=== PATIENT | male | born 1990 | race Caucasian/White ===

== ENCOUNTER → 2019-05-12 20:20 | Outpatient (CLI) | payer BC, SELFPAY | PROVIDERS: PCP Internal Medicine Adolescent Medicine; Visit Provider Internal Medicine Adolescent Medicine | DX: G47.33 Obstructive sleep apnea (adult) (pediatric) (principal); R06.83 Snoring; E66.9 Obesity, unspecified | CPT/HCPCS: 95810 ==

== ENCOUNTER → 2019-10-16 14:32 | Outpatient (CLI) | payer BC, SELFPAY | PROVIDERS: PCP Internal Medicine Adolescent Medicine; Visit Provider Nurse Practitioner Family | DX: G47.33 Obstructive sleep apnea (adult) (pediatric) (principal); Z99.89 Dependence on other enabling machines and devices | CPT/HCPCS: 94762 ==

== ENCOUNTER 2020-08-02 22:33 | Observation (INO) | payer BC, SELFPAY ==
[2020-08-02 22:43] VITALS: BP 140/97; PULSE 73; RESP 17; TEMP 36.6; O2SAT 96; BMI 39.6
--- NOTE | 2020-08-02 22:48 | CT_ITS ---
PROCEDURE: CT ABDOMEN PELVIS W CON CLINICAL INDICATION: belly pain Epigastric pain, abdominal pain COMPARISON: CT ABDWO CT ABD W/O CONT(RENAL ST.orAPP from 09/07/2017 TECHNIQUE: IV Contrast: 75ML OPTIRAY 350 Oral Contrast None Axial images obtained with sagittal and coronal reformats. All CT scans at the facility use one or more dose reduction, viz: automated exposure control, ma/kV adjustment per patient size (including targeted exams where dose is matched to indication, i.e. head), or iterative reconstruction technique. FINDINGS: LOWER THORAX: Patchy density is present in the right lung base posteriorly suggesting an area of atelectasis or early infiltrate. ABDOMEN & PELVIS: There is an ill-defined hypodensity in the left hepatic lobe measuring 9 mm. There is a Phrygian cap at the gallbladder with a small stone within the cap. There is also small stones in the region of the gallbladder neck/cystic duct. There is minimal haziness of the pericholecystic fat. The pancreas, adrenal glands, have an unremarkable appearance. There are nonobstructing bilateral renal calculi at 2 mm in the lower pole on both sides. No ureteral calculi are evident. There is a small umbilical hernia containing fat. Unremarkable appendix. No intestinal obstruction or free air. No acute bony findings. No pelvic mass or abnormal fluid collection. IMPRESSION: Cholelithiasis. There is some mild haziness of the pericholecystic fat which may be seen with cholecystitis. Nonobstructing bilateral nephrolithiasis Indeterminate 9 mm lesion of the left hepatic lobe the. Stability may be confirmed with follow-up possibly due to hemangioma not readily apparent on the 5 minutes delayed images. Dictated by: Juan Dutta MD 08/03/2020 10:28 Juan Dutta MD in [place] 08/03/2020 10:28
[2020-08-02 22:53] LABS: Microscopic, Urine URINE MICROSCOPIC (MICROSCOPIC)
[2020-08-02 22:55] LABS: Appearance,Urine CLEAR (Clear); Bilirubin,Urine Negative (Negative); Blood, Urine TRACE-L (Negative); Color,Urine YELLOW (Yellow); Glucose,Urine (UA) Negative (Negative); Ketones,Urine Negative (Negative); Leukocyte Esterase,Urine Negative (Negative); Nitrate,Urine Negative (Negative); PH,Urine 7.5 (5.0-8.5); Protein,Urine Negative (Negative); Urobilinogen,Urine 0.2 EU/dl (0.2)
[2020-08-02 22:56] LABS: Basophils # 0.1 K/mm3 (0-0.2); Basophils % 0.7 % (0.1-2.0); Eosinophils # 0.2 K/mm3 (0.0-0.4); Eosinophils % 1.3 % (0.1-12.0); Hematocrit 50.1 % (42.0-52.0); Hemoglobin 16.5 g/dL (14.1-18.0); Lymphocytes % 32.6 % (10-50); Mean Corpuscular HGB Conc 32.9 g/dL (31.8-35.4); Mean Corpuscular Volume 88.3 fl (80-94); Monocytes # 0.8 K/mm3 (0.1-1.0); Monocytes % 6.5 % (1.7-9.3); Neutrophils # 7.3 K/mm3 (1.8-7.8); Neutrophils % 58.9 % (37.0-80.0); Platelet Count 272 K/mm3 (142-424); Red Blood Count 5.68 M/mm3 (4.60-6.20); Red Cell Distribution Width 13.1 % (11.5-17.5); White Blood Count 12.3 K/mm3 (4.8-10.8)
[2020-08-02 23:01] LABS: Chloride 102 mmol/L (98-107)
[2020-08-02 23:02] LABS: Potassium 4.3 mmoL/L (3.5-5.1); Sodium 142 mmol/L (136-145)
[2020-08-02 23:04] LABS: Alanine Aminotransferase 40 U/L (12-78); Alkaline Phosphatase 68 U/L (38-126); Amylase 60 U/L (30-110); Anion Gap 12.3 mEq/L (5-15); Aspartate Amino Transferase 25 U/L (17-59); Bilirubin,Total 0.4 mg/dl (0.2-1.3); Blood Urea Nitrogen 12 mg/dl (9-20); Carbon Dioxide 32 mmol/L (22.0-30.0); Creatinine Clearance Estimated 237 mL/min (50-200); Estimated Glomerular Filt Rate 113 ml/min (>60); GFR (African American) 136 ML/MIN (>60)
[2020-08-02 23:05] LABS: Albumin Level 4.5 g/dl (3.5-5.0); Albumin/Globulin Ratio 1.5 (1.1-1.8); Calcium 9.8 mg/dl (8.4-10.2); Glucose 102 mg/dl (74-100); Lipase 78 U/L (23-300); Total Protein,Serum 7.5 g/dl (6.3-8.2)
[2020-08-02 23:13] LABS: Amorphous Sediment,Urine 1+ /lpf; Bacteria,Urine 1+ /lpf; Mucus,Urine 1+ /lpf; RBC,Urine Occasional #/hpf (0-3)
[2020-08-02 23:31] VITALS: BP 116/66; PULSE 71; RESP 18; O2SAT 95
[2020-08-03] VITALS (8 sets, daily range): BP systolic 95–131; BP diastolic 57–76; PULSE 67–78; RESP 16–20; TEMP 36.4–36.6; O2SAT 96–99; BMI 40.1
--- NOTE | 2020-08-03 00:49 | HMH.EDNVD ---
ED Disposition Clinical Impression: Cholecystitis with cholelithiasis Qualifiers: Cholelithiasis location: gallbladder Cholecystitis acuity: acute Biliary obstruction: without biliary obstruction Qualified Code(s): K80.00 - Calculus of gallbladder with acute cholecystitis without obstruction Disposition: Admitted as Observation Condition on Discharge: Good Instructions: DI for Acute Abdomen Referrals: Charles Lopez MD [Primary Care Provider] - - Critical Care Critical Care Time: No Attestation: On 08/02/20, the high probability of a clinically significant, sudden or life threatening deterioration of the following system(s) required my full and direct attention, intervention and personal management. The time I documented below is in addition to time spent performing reported procedures but includes the following listed in this critical care notation. Medical Decision Making - Medical Records Medical records reviewed: Yes: I reviewed the patient's medical records. - Janes Inquiry Pt receiving controlled substance: No Vital Signs: 08/02/20 22:43 08/02/20 23:31 08/03/20 00:37 Temperature 97.8 F Temperature Source Oral Pulse Rate [Right Brachial] 73 71 67 Respiratory Rate 17 18 17 Blood Pressure [Right Arm] 140/97 H 116/66 105/61 L Blood Pressure Mean [Right Arm] 111 82 75 Blood Pressure Source [Right Arm] Automatic Cuff Automatic Cuff Blood Pressure Position [Right Arm] Sitting Sitting 02 Sat by Pulse Oximetry 96 95 97 Oxygen Delivery Method Room Air Room Air Room Air - Lab Data Lab results reviewed: Yes: I reviewed the patient's lab results. Lab Results 08/02/20 22:42: Urine Color Yellow, Urine Appearance Clear, Urine pH 7.5, Ur Specific [place] 1.020, Urine Protein Negative, Urine Glucose (UA) Negative, Urine Ketones Negative, Urine Blood Trace-l, Urine Nitrate Negative, Urine Bilirubin Negative, Urine Urobilinogen 0.2, Ur Leukocyte Esterase Negative, Urine RBC Occasional, Urine WBC 3-5, Amorphous Sediment 1+, Urine Bacteria 1+, Urine Mucus 1+ 08/02/20 22:50: WBC 12.3 H, RBC 5.68, Hgb 16.5, Hct 50.1, MCV 88.3, MCH 29.0, MCHC 32.9, RDW 13.1, Plt Count 272, MPV 7.0 L, Neut % (Auto) 58.9, Lymph % (Auto) 32.6, [place] % (Auto) 6.5, Eos % (Auto) 1.3, Baso % (Auto) 0.7, Neut # (Auto) 7.3, Lymph # (Auto) 4.0, [place] # (Auto) 0.8, Eos # (Auto) 0.2, Baso # (Auto) 0.1 08/02/20 22:50: Sodium 142, Potassium 4.3, Chloride 102, Carbon Dioxide 32 H, Anion Gap 12.3, BUN 12, Creatinine 0.80, Estimated Creat Clear 237, Estimated GFR 113, Est GFR ( Amer) 136, Glucose 102 H, Calcium 9.8, Total Bilirubin 0.4, AST 25, ALT 40, Alkaline Phosphatase 68, Total Protein 7.5, Albumin 4.5, Globulin 3.0, Albumin/Globulin Ratio 1.5, Amylase 60, Lipase 78 Result diagrams: 08/02/20 22:50 08/02/20 22:50 Orders (Tests/Meds): ED MEDICATIONS Generic Name Dose Route Start Last Admin Trade Name Robertq PRN Reason Stop Dose Admin Sodium Chloride 1,000 mls @ 999 mls/hr 08/02/20 23:00 08/02/20 23:13 Sod Chlor 0.9% 1000ml Bag IV 08/03/20 00:00 999 mls/hr .Q1H1M MADELYN Administration Sodium Chloride 8 ml 08/02/20 23:01 08/02/20 23:13 Sodium Chloride 0.9% 10ml Vial IV 09/01/20 23:00 8 ml NEEDED PRN Administration dilute pepcid Discontinued Medications Generic Name Dose Route Start Last Admin Trade Name Za PRN Reason Stop Dose Admin Famotidine 20 mg 08/02/20 23:01 08/02/20 23:13 Famotidine 20mg/2ml Vial IV 08/02/20 23:02 20 mg ONCE ONE Administration Ioversol 75 ml 08/02/20 23:49 08/02/20 23:50 Ioversol-350 (74%) 100ml Vial IV 08/02/20 23:50 75 ml ONCE ONE Administration Protocol Ketorolac Tromethamine 30 mg 08/02/20 22:58 08/02/20 23:13 Ketorolac 30mg/Ml Vial IV 08/02/20 22:59 30 mg ONCE ONE Administration Metoclopramide HCl 10 mg 08/02/20 23:01 08/02/20 23:13 Metoclopramide Hcl 10mg/2ml Vial IVP 08/02/20 23:02 10 mg ONCE ONE Administration Onda
[2020-08-03 01:26] LABS: Coronavirus 19 IgG Antibody Negative (Negative); Coronavirus 19 IgM Antibody Negative (Negative)
--- NOTE | 2020-08-03 01:58 | PC.NURSE ---
PT ARRIVED TO THE FLOOR VIA W/C FROM ED W/ STAFF AT 0157
--- NOTE | 2020-08-03 04:01 | PC.NURSE ---
Pt is A&Ox4 and has ambulated in the room and to the BR, independently and tolerated well. 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 Pt kept NPO for GB U/S and general surg consult this am. Lungs CTA. Pt reports h/x GARETH and uses a cpap during sleep. Pt offered to contact MD for hospital cpap use, however pt stated he would be ok tonight and if staying a 2nd night, he would have family bring his cpap from home. VSS, call light within reach, will continue to monitor.
[2020-08-03 07:36] LABS: Basophils # 0.1 K/mm3 (0-0.2); Basophils % 0.5 % (0.1-2.0); Eosinophils # 0.2 K/mm3 (0.0-0.4); Hematocrit 46.7 % (42.0-52.0); Hemoglobin 15.6 g/dL (14.1-18.0); Lymphocytes # 3.8 K/mm3 (0.7-4.5); Lymphocytes % 40.4 % (10-50); Mean Corpuscular HGB Conc 33.5 g/dL (31.8-35.4); Mean Corpuscular Volume 86.7 fl (80-94); Mean Platelet Volume 7.6 fl (7.4-10.4); Monocytes # 0.6 K/mm3 (0.1-1.0); Monocytes % 6.1 % (1.7-9.3); Neutrophils # 4.9 K/mm3 (1.8-7.8); Platelet Count 243 K/mm3 (142-424); Red Blood Count 5.39 M/mm3 (4.60-6.20); Red Cell Distribution Width 13.1 % (11.5-17.5); White Blood Count 9.5 K/mm3 (4.8-10.8)
--- NOTE | 2020-08-03 08:00 | US_ITS ---
PROCEDURE: US GALLBLADDER CLINICAL INDICATION: abd pain/abn ct Abdominal pain, epigastric pain, abnormal CT scan COMPARISON: CT CT ABDOMEN PELVIS W CON from 08/02/2020 FINDINGS: Pancreas: Unremarkable/Not well seen Liver: There is appropriate direction of blood flow within a non dilated portal vein. No focal liver lesion demonstrated. Right kidney: Unremarkable appearing. No hydronephrosis. Gallbladder: The gallbladder is contracted with thickened wall. There is may be a minimal amount of pericholecystic fluid. No definite stones are demonstrated. CT however suggested stones within the cystic duct which may be difficult to visualize by ultrasound. Gas is present in the duodenum a at this area obscuring detail. Common bile duct is normal at 4 mm. Gallbladder wall measures up to 9 mm in thickness IMPRESSION: Contracted thickened gallbladder with questionable minimal pericholecystic fluid. No definite stones demonstrated by ultrasound however, cystic duct stones may be difficult to visualize on ultrasound specially with gas in the duodenal bulb area as is in this case Dictated by: Juan Dutta MD 08/03/2020 09:29 Juan Dutta MD in [place] 08/03/2020 09:29
[2020-08-03 08:01] LABS: Alanine Aminotransferase 32 U/L (12-78); Albumin Level 3.7 g/dl (3.5-5.0); Albumin/Globulin Ratio 1.4 (1.1-1.8); Alkaline Phosphatase 59 U/L (38-126); Anion Gap 10.9 mEq/L (5-15); Aspartate Amino Transferase 26 U/L (17-59); Bilirubin,Total 0.7 mg/dl (0.2-1.3); Blood Urea Nitrogen 12 mg/dl (9-20); Carbon Dioxide 28 mmol/L (22.0-30.0); Chloride 106 mmol/L (98-107); Creatinine Clearance Estimated 240 mL/min (50-200); Estimated Glomerular Filt Rate 113 ml/min (>60); GFR (African American) 136 ML/MIN (>60); Globulin 2.7 g/dL (1.3-3.2); Glucose 93 mg/dl (74-100); Potassium 3.9 mmoL/L (3.5-5.1); Sodium 141 mmol/L (136-145); Total Protein,Serum 6.4 g/dl (6.3-8.2)
--- NOTE | 2020-08-03 08:14 | HMH.PHAVTE ---
[facility] Pharmacy VTE Monitoring - Patient Demographics Admission date: 08/03/20 Report Date: 08/03/20 Time: 08:14 Allergies/Adverse Reactions: Patient Allergies No Known Allergies Allergy (Verified 08/02/20 22:51) Height: 1.78 m Weight: 127.006 kg Patient Problems: Current Active Problems Cholecystitis with cholelithiasis (Acute) - VTE Risk Labs: VTE Related Lab Results Hgb 15.6 g/dL (14.1-18.0) 08/03/20 06:07 Hct 46.7 % (42.0-52.0) 08/03/20 06:07 Plt Count 243 K/mm3 (142-424) 08/03/20 06:07 BUN 12 mg/dl (9-20) 08/03/20 06:07 Creatinine 0.80 mg/dl (0.66-1.25) 08/03/20 06:07 Estimated Creat Clear 240 mL/min (50-200) 08/03/20 06:07 VTE Score: 2 VTE Risk Level: Very Low Risk Clinical Trial Participant: No - Prophylaxis VTE Prophylaxis Ordered?: Yes Types of VTE Prophylaxis: TEDS Knee High
--- NOTE | 2020-08-03 08:55 | HMH.HP ---
*Admission Date: 08/03/20 *Chief complaint: Abdominal pain and vomiting *History of present illness: 30-year-old white male with very limited past medical history who is morbidly obese who came to the emergency department late last night with abdominal pain, cramping and vomiting. CT of abdomen showed gallstones, patient was admitted for further evaluation and diagnostic testing. Patient has no surgical history except for bilateral inguinal hernia repair when he was 5 years old. No recent ill contacts. No lower GI symptoms. [facility] History I have reviewed the patient's past medical history: Yes Medical History: Reports:: Anxiety Denies:: Cancer, Diabetes Mellitus Type 1, Diabetes Mellitus Type 2 *Have you ever received a pneumonia vaccine?: No *Have you received a flu vaccine this season?: No Other Medical History: Reports: Other Other Surgeries: Yes: Hernia Repair (double hernia repair in 1994) - *Social History Last grade of school completed: High school graduate Smoking Status: Former smoker Tobacco Type: cigarettes, smokeless tobacco # Packs/Day (cigarettes): 1 Alcohol Intake: current Alcohol Intake Frequency:: holidays/special occasions only Substance Use Type: denies use *Occupational Status:: employed Housing: house Household Members: significant other *Travel in the last 8 weeks: None Family Hx:: Coronary Artery Disease, Diabetes, Hypertension, Stroke Review of Systems - Review of Systems Review of systems:: pertinent systems reviewed and negative unless documented below - *Neurologic Denies seizure-like activity Meds Home Medications Medication Instructions Recorded Confirmed Type Venlafaxine HCl [Venlafaxine HCl 37.5 mg PO DAILY 08/02/20 08/03/20 History ER] Citalopram Hydrobromide 10 mg PO DAILY 08/03/20 08/03/20 History [Citalopram 10mg Tablet] Allergies Allergy/AdvReac Type Severity Reaction Status Date / Time No Known Allergies Allergy Verified 08/02/20 22:51 Exam Vital signs and Labs for Last 24 Hours: Temp Pulse Resp BP Pulse Ox 97.7 F 78 16 113/75 96 08/03/20 07:57 08/03/20 07:57 08/03/20 07:57 08/03/20 07:57 08/03/20 07:57 Laboratory Results - last 24 hr 08/02/20 22:42: Urine Color Yellow, Urine Appearance Clear, Urine pH 7.5, Ur Specific [place] 1.020, Urine Protein Negative, Urine Glucose (UA) Negative, Urine Ketones Negative, Urine Blood Trace-l, Urine Nitrate Negative, Urine Bilirubin Negative, Urine Urobilinogen 0.2, Ur Leukocyte Esterase Negative, Urine RBC Occasional, Urine WBC 3-5, Amorphous Sediment 1+, Urine Bacteria 1+, Urine Mucus 1+ 08/02/20 22:50: WBC 12.3 H, RBC 5.68, Hgb 16.5, Hct 50.1, MCV 88.3, MCH 29.0, MCHC 32.9, RDW 13.1, Plt Count 272, MPV 7.0 L, Neut % (Auto) 58.9, Lymph % (Auto) 32.6, [place] % (Auto) 6.5, Eos % (Auto) 1.3, Baso % (Auto) 0.7, Neut # (Auto) 7.3, Lymph # (Auto) 4.0, [place] # (Auto) 0.8, Eos # (Auto) 0.2, Baso # (Auto) 0.1 08/02/20 22:50: Sodium 142, Potassium 4.3, Chloride 102, Carbon Dioxide 32 H, Anion Gap 12.3, BUN 12, Creatinine 0.80, Estimated Creat Clear 237, Estimated GFR 113, Est GFR ( Amer) 136, Glucose 102 H, Calcium 9.8, Total Bilirubin 0.4, AST 25, ALT 40, Alkaline Phosphatase 68, Total Protein 7.5, Albumin 4.5, Globulin 3.0, Albumin/Globulin Ratio 1.5, Amylase 60, Lipase 78 08/03/20 00:00: SARS-CoV-2 IgG Ab (Rapid) Negative, SARS-CoV-2 IgM Ab (Rapid) Negative 08/03/20 06:07: WBC 9.5, RBC 5.39, Hgb 15.6, Hct 46.7, MCV 86.7, MCH 29.0, MCHC 33.5, RDW 13.1, Plt Count 243, MPV 7.6, Neut % (Auto) 51.0, Lymph % (Auto) 40.4, [place] % (Auto) 6.1, Eos % (Auto) 2.0, Baso % (Auto) 0.5, Neut # (Auto) 4.9, Lymph # (Auto) 3.8, [place] # (Auto) 0.6, Eos # (Auto) 0.2, Baso # (Auto) 0.1 08/03/20 06:07: Sodium 141, Potassium 3.9, Chloride 106, Carbon Dioxide 28, Anion Gap 10.9, BUN 12, Creatinine 0.80, Estimated Creat Clear 240, Estimated GFR 113, Est GFR ( Amer) 136, Glucose 93, Total Bilirubin 0.7, AST 26, ALT 32, Alkaline Phosphata
--- NOTE | 2020-08-03 12:41 | HMH.GSCON ---
*Admission Date: 08/03/20 *Reason for consult:: Cholecystitis *History of present illness: This is a 30-year-old gentleman who was seen in the emergency department yesterday evening with increasing pain in the upper abdomen. No fevers. No jaundice. His most significant pain is in the epigastric region and right upper quadrant. A CT scan followed by ultrasound did reveal a contracted gallbladder with possible stones. A 9 mm liver lesion of undetermined etiology was also noted. The patient states that he is aware of the small liver lesion and will have it looked at later . Currently, he states that he feels a bit better . He understands that he may need cholecystectomy but would prefer to be discharged and have this completed as an outpatient. Review of Systems - Constitutional Denies chills - Eyes Denies change in vision - ENT Denies difficulty swallowing - *Cardiovascular Denies chest pain - *Respiratory Denies cough - *Gastrointestinal Reports abdominal pain, Reports nausea - *Genitourinary Denies difficulty urinating - *Musculoskeletal Denies joint pain - Integumentary/Breasts Denies new lesions - *Neurologic Denies abnormal movements, Denies confusion, Denies seizure-like activity - Psychiatric Denies anxiety - Endocrine Denies cold intolerance - Hematologic/Lymphatic Denies easy bleeding - Allergic/Immunologic Denies wheezing [facility] History Medical History: Reports:: Anxiety Denies:: Cancer, Diabetes Mellitus Type 1, Diabetes Mellitus Type 2 *Have you ever received a pneumonia vaccine?: No *Have you received a flu vaccine this season?: No Other Medical History: Reports: Other Other Surgeries: Yes: Hernia Repair (double hernia repair in 1994) - *Social History Last grade of school completed: High school graduate Smoking Status: Former smoker Tobacco Type: cigarettes, smokeless tobacco # Packs/Day (cigarettes): 1 Alcohol Intake: current Alcohol Intake Frequency:: holidays/special occasions only Substance Use Type: denies use *Occupational Status:: employed Housing: house Household Members: significant other *Travel in the last 8 weeks: None - Psychiatric History Pschychiatric History:: Reports:: Anxiety Family Hx:: Coronary Artery Disease, Diabetes, Hypertension, Stroke Meds Home Medications Medication Instructions Recorded Confirmed Type Venlafaxine HCl [Venlafaxine HCl 37.5 mg PO DAILY 08/02/20 08/03/20 History ER] Allergies Allergy/AdvReac Type Severity Reaction Status Date / Time No Known Allergies Allergy Verified 08/02/20 22:51 Exam Vital signs and Labs for Last 24 Hours: Temp Pulse Resp BP Pulse Ox 97.7 F 78 18 113/75 96 08/03/20 07:57 08/03/20 07:57 08/03/20 10:17 08/03/20 07:57 08/03/20 08:00 Laboratory Results - last 24 hr 08/02/20 22:42: Urine Color Yellow, Urine Appearance Clear, Urine pH 7.5, Ur Specific [place] 1.020, Urine Protein Negative, Urine Glucose (UA) Negative, Urine Ketones Negative, Urine Blood Trace-l, Urine Nitrate Negative, Urine Bilirubin Negative, Urine Urobilinogen 0.2, Ur Leukocyte Esterase Negative, Urine RBC Occasional, Urine WBC 3-5, Amorphous Sediment 1+, Urine Bacteria 1+, Urine Mucus 1+ 08/02/20 22:50: WBC 12.3 H, RBC 5.68, Hgb 16.5, Hct 50.1, MCV 88.3, MCH 29.0, MCHC 32.9, RDW 13.1, Plt Count 272, MPV 7.0 L, Neut % (Auto) 58.9, Lymph % (Auto) 32.6, [place] % (Auto) 6.5, Eos % (Auto) 1.3, Baso % (Auto) 0.7, Neut # (Auto) 7.3, Lymph # (Auto) 4.0, [place] # (Auto) 0.8, Eos # (Auto) 0.2, Baso # (Auto) 0.1 08/02/20 22:50: Sodium 142, Potassium 4.3, Chloride 102, Carbon Dioxide 32 H, Anion Gap 12.3, BUN 12, Creatinine 0.80, Estimated Creat Clear 237, Estimated GFR 113, Est GFR ( Amer) 136, Glucose 102 H, Calcium 9.8, Total Bilirubin 0.4, AST 25, ALT 40, Alkaline Phosphatase 68, Total Protein 7.5, Albumin 4.5, Globulin 3.0, Albumin/Globulin Ratio 1.5, Amylase 60, Lipase 78 08/03/20 00:00: SARS-CoV-2 IgG Ab (Rapid
--- NOTE | 2020-08-03 13:26 | HMH.DCSUM ---
General - General Admission date:: 08/03/20 Discharge date: 08/03/20 HPI HPI: 30-year-old white male with very limited past medical history who is morbidly obese who came to the emergency department late last night with abdominal pain, cramping and vomiting. CT of abdomen showed gallstones, patient was admitted for further evaluation and diagnostic testing. Patient has no surgical history except for bilateral inguinal hernia repair when he was 5 years old. No recent ill contacts. No lower GI symptoms. Hospital Course Hospital Course: Patient was admitted to hospital, diagnosis of cholelithiasis with cholecystitis was confirmed by ultrasound. However patient stabilized. Was able to tolerate clear liquids. Surgery recommended laparoscopic cholecystectomy and patient wishes the schedule for tomorrow. He will be discharged overnight with short-term Phenergan and pain medication prescription. Follow up with surgery tomorrow Objective Vital signs: Temp Pulse Resp BP Pulse Ox 97.7 F 78 18 113/75 96 08/03/20 07:57 08/03/20 07:57 08/03/20 10:17 08/03/20 07:57 08/03/20 08:00 no acute distress - *Routine HEENT Exam Head: Present: normocephalic Eye: Present: EOMI, PERRL ENT: Present: mucous membranes moist - *Routine Neck Exam Present: supple - *Routine Respiratory Exam Present: CTA bilaterally - *Routine Cardiovascular Exam Present: RRR - *Routine Abdominal Exam Present: soft, normoactive bowel sounds, tenderness - *Routine Extremities Exam Absent: cyanosis, clubbing, edema - *Routine Skin Exam Present: warm. Absent: rash - Detailed Eye Exam Eyelids: Bilateral normal inspection Results Labs on day of discharge: Labs from last 24 hours 08/03/20 08/03/20 08/03/20 06:07 06:07 00:00 WBC 9.5 RBC 5.39 Hgb 15.6 Hct 46.7 MCV 86.7 MCH 29.0 MCHC 33.5 RDW 13.1 Plt Count 243 MPV 7.6 Neut % (Auto) 51.0 Lymph % (Auto) 40.4 [place] % (Auto) 6.1 Eos % (Auto) 2.0 Baso % (Auto) 0.5 Neut # (Auto) 4.9 Lymph # (Auto) 3.8 [place] # (Auto) 0.6 Eos # (Auto) 0.2 Baso # (Auto) 0.1 Sodium 141 Potassium 3.9 Chloride 106 Carbon Dioxide 28 Anion Gap 10.9 BUN 12 Creatinine 0.80 Estimated Creat Clear 240 Estimated GFR 113 Est GFR ( Amer) 136 Glucose 93 Calcium Total Bilirubin 0.7 AST 26 ALT 32 Alkaline Phosphatase 59 Total Protein 6.4 Albumin 3.7 D Globulin 2.7 Albumin/Globulin Ratio 1.4 Amylase Lipase Urine Color Urine Appearance Urine pH Ur Specific [place] Urine Protein Urine Glucose (UA) Urine Ketones Urine Blood Urine Nitrate Urine Bilirubin Urine Urobilinogen Ur Leukocyte Esterase Urine RBC Urine WBC Amorphous Sediment Urine Bacteria Urine Mucus SARS-CoV-2 IgG Ab (Rapid) Negative SARS-CoV-2 IgM Ab (Rapid) Negative 08/02/20 08/02/20 08/02/20 22:50 22:50 22:42 WBC 12.3 H RBC 5.68 Hgb 16.5 Hct 50.1 MCV 88.3 MCH 29.0 MCHC 32.9 RDW 13.1 Plt Count 272 MPV 7.0 L Neut % (Auto) 58.9 Lymph % (Auto) 32.6 [place] % (Auto) 6.5 Eos % (Auto) 1.3 Baso % (Auto) 0.7 Neut # (Auto) 7.3 Lymph # (Auto) 4.0 [place] # (Auto) 0.8 Eos # (Auto) 0.2 Baso # (Auto) 0.1 Sodium 142 Potassium 4.3 Chloride 102 Carbon Dioxide 32 H Anion Gap 12.3 BUN 12 Creatinine 0.80 Estimated Creat Clear 237 Estimated GFR 113 Est GFR ( Amer) 136 Glucose 102 H Calcium 9.8 Total Bilirubin 0.4 AST 25 ALT 40 Alkaline Phosphatase 68 Total Protein 7.5 Albumin 4.5 Globulin 3.0 Albumin/Globulin Ratio 1.5 Amylase 60 Lipase 78 Urine Color Yellow Urine Appearance Clear Urine pH 7.5 Ur Specific [place] 1.020 Urine Protein Negative Urine Glucose (UA) Negative
[2020-08-03 15:16] LABS: Calcium 8.8 mg/dl (8.4-10.2)
== END 2020-08-03 13:55 | disposition home or self-care (01) ==
LOC: ER 08-03 00:58 → 2ND 08-03 01:17
PROVIDERS: Admitting Provider Family Medicine; Emergency Provider Emergency Medicine; PCP Internal Medicine Adolescent Medicine; Visit Provider Internal Medicine Adolescent Medicine
DX: K80.00 Calculus of gallbladder with acute cholecystitis without obstruction (principal); Z87.891 Personal history of nicotine dependence; E66.01 Morbid (severe) obesity due to excess calories; Z68.41 Body mass index [BMI] 40.0-44.9, adult
CPT/HCPCS: 74177; 76705; 80053; 81001; 82150; 83690; 85025; 86328; 96365; 96366; 96375; 99284; G0378; J2405; J2543; Q9967

== ENCOUNTER 2020-08-04 08:49 | Day surgery (SDC) | payer BC, SELFPAY ==
[2020-08-03 14:30] VITALS: BMI 40.7
[2020-08-04] VITALS (9 sets, daily range): BP systolic 118–164; BP diastolic 69–99; PULSE 82–93; RESP 12–18; TEMP 36.4–37.1; O2SAT 91–99
--- NOTE | 2020-08-04 11:00 | HMH.ANESCL ---
[facility] Anesthesia Checklist - Patient Identification Patient Identification: Arm Band, Verbal (Name & ) - Structural Data Admitted From: Home Planned Operative Procedure/s: lap choly Consent for Planned Operative Procedure(s) Verified: Yes Verified Documents: History and Physical - NPO Status Verified Time NPO: 00:00 - Chart Verification Results Verified: CBC, BMP - Additional verifications Patient : No Anesthesia Reactions: No Hx Blood Transfusions: No Blood Transfusion Reaction: No Cephalosporin Allergy: No Previous Colonoscopy: No - Cardiovascular Assessment Heart Sounds: S1 & S2 Pulse Strength: Baseline Pulse Rhythm: Regular Peripheral Edema: No - Airway Assessment C-Spine Mobility Assessed: Yes TMJ Mobility Assessed: Yes Dentition: Good Dentition - Neurological Assessment Level of Consciousness: Awake, Alert, Appropriate Hx Seizures: No Numbness or tingling in extremities: No - Anesthesia Plan Anesthesia Risk discussed: Yes Anesthesia Plan: Verified ASA Class: II Anesthesia Type: General [facility] History I have reviewed the patient's past medical history: Yes Medical History: Reports:: Anxiety Denies:: Cancer, Diabetes Mellitus Type 1, Diabetes Mellitus Type 2, Internal Pacemaker, MRSA, Seizures *Have you ever received a pneumonia vaccine?: No *Have you received a flu vaccine this season?: No Other Medical History: Reports: Other. Denies: Blood Transfusion Reaction Anesthesia experience/problems:: none Other Surgeries: Yes: Hernia Repair (double hernia repair in 1994). No: Pacemaker Amputation: No Fractures: No - *Social History Last grade of school completed: High school graduate Smoking Status: Current every day smoker Tobacco Type: smokeless tobacco # Packs/Day (cigarettes): 1 Alcohol Intake: current Alcohol Intake Frequency:: a few times a month Substance Use Type: denies use *Occupational Status:: employed Housing: house Household Members: significant other *Travel in the last 8 weeks: None - Psychiatric History Pschychiatric History:: Reports:: Anxiety Family Hx:: Coronary Artery Disease, Diabetes, Hypertension, Stroke
--- NOTE | 2020-08-04 12:43 | P.OP_ITS ---
Date of procedure: 08/04/20 Pre-op Diagnosis:: Acute on chronic calculus cholecystitis Post-op Diagnosis:: Same Procedure performed:: Laparoscopic cholecystectomy Surgeon:: Dawit Max MD BUSINESS ADMINISTRATION PROFESSOR:: Corwin Ross Anesthesia: GETA Estimated blood loss (mL): 15 Operative findings:: Distended gallbladder with mild to moderate wall thickening Significant soft tissue stranding in and around infundibulum with serosal inflammation Operative note:: After informed consent was obtained, the patient was taken to the operating room and placed in the supine position. General anesthesia was induced and the abdomen was prepped and draped in a sterile fashion. After infiltration with local anesthetic an infraumbilical incision was made. A Veress needle was placed in position. The abdomen was insufflated. A 5 mm optical trocar was placed in position. Under direct visualization, a 12 mm trocar was placed in the subxiphoid position and 2 additional 5 mm trocars were placed in the right upper quadrant. The gallbladder was elevated up and over the liver margin. The tissue around the cystic duct was carefully dissected. 3 clips were placed proximally and the duct was transected with harmonic macho. Harmonic macho were then utilized to dissect the gallbladder away from the liver margin with careful attention to the control of the cystic artery. The gallbladder was placed in a retrieval bag and removed through the subxiphoid trocar site. The right upper quadrant was thoroughly irrigated. No active bleeding or bile leak was noted. Fascia at the subxiphoid trocar site was reapproximated utilizing the NeoClose device. The remaining trocars were removed. All wounds were irrigated and skin was closed with 4-0 Monocryl in a subcuticular fashion. Steri-Strips were applied. The patient's anesthetic agents were reversed and extubation was completed prior to transfer to recovery in stable condition. Condition: stable Disposition: PACU Specimens:: Gallbladder Complications:: No immediate
--- NOTE | 2020-08-04 12:52 | P.PN_ITS ---
[facility] Anesthesia Record Part I Intake, IV Amount: 1,500 Estimated blood loss (mL): 0 Urine output (mL): 0 Blood Pressure: 152/89 SaO2: 92 Pulse Rate: 86 Respiratory Rate: 12 Temperature: 97.6 F Patient is:: Awake, Stable Stable to PACU at:: 12:50
--- NOTE | 2020-08-05 14:12 | P.PN_ITS ---
[facility] Anesthesia Record Part II Discharge Time: 13:20 Destination: [facility] PACU nurse assessment reviewed?: Yes Patient Condition:: Good Anesthesia Complications:: None Swallowing reflex intact?: Yes Cyanosis?: No Blood Pressure: 140/82 Pulse Rate: 89 Temperature: 98.6 F Mental Status: Alert & Oriented Pain level:: 5 Nausea and/or vomitting:: None Intake, IV Amount: 1,500
[2020-08-05 14:13] VITALS: BP 140/82; PULSE 89; TEMP 37
== END 2020-08-04 13:59 | disposition home or self-care (01) ==
LOC: OR 08:51
PROVIDERS: PCP Internal Medicine Adolescent Medicine; Visit Provider Surgery
PROC: 0FT44ZZ Resection of Gallbladder, Percutaneous Endoscopic Approach (ICD-10-PCS; CPT 47562; principal; 2020-08-04 10:30)
DX: K81.2 Acute cholecystitis with chronic cholecystitis (principal); F41.9 Anxiety disorder, unspecified; Z83.3 Family history of diabetes mellitus; Z82.3 Family history of stroke; Z82.49 Family history of ischemic heart disease and other diseases of the circulatory system; Z84.89 Family history of other specified conditions; Z79.899 Other long term (current) drug therapy
CPT/HCPCS: 47562; 96374; J2405

== ENCOUNTER → 2021-03-24 15:37 | Outpatient (CLI) | payer BC, SELFPAY ==
--- NOTE | 2021-03-24 15:40 | MR_ITS ---
PROCEDURE INFORMATION: Exam: MR Left Lower Extremity Joint Without Contrast, Knee Exam date and time: 03/24/2021 3:40 PM Age: 30 years old Clinical indication: Pain and injury or trauma; Sprain or strain; Patella or knee; Patient HX: Left medial knee pain after fall 2 months ago, no prior. TECHNIQUE: Imaging protocol: MR of the Left lower extremity joint without contrast. Exam focused on the knee. COMPARISON: No relevant prior studies available. FINDINGS: Bones and cartilage: Unremarkable. No bone abnormalities. Articular cartilage normal. Joint spaces: No joint effusion. Bursae: Small Rosales's cyst. Medial meniscus: Unremarkable. No tear. Lateral meniscus: Unremarkable. No tear. Anterior cruciate ligament: Unremarkable. No tear. Posterior cruciate ligament: Unremarkable. No tear. Medial capsule and supporting structures: Unremarkable. No tear. Lateral capsule and supporting structures: Unremarkable. No tear. Extensor mechanism of knee: Unremarkable. No tear. Muscles: Unremarkable. Soft tissues: Unremarkable. IMPRESSION: Small Rosales's cyst. No other internal derangement.
== END ==
PROVIDERS: PCP Internal Medicine Adolescent Medicine; Visit Provider Internal Medicine Adolescent Medicine
DX: M25.562 Pain in left knee (principal)
CPT/HCPCS: 73721

== ENCOUNTER → 2021-10-17 16:38 | Outpatient (CLI) | payer BC, SELFPAY | PROVIDERS: Visit Provider Nurse Practitioner | DX: U07.1 COVID-19 (principal) | CPT/HCPCS: C9803; U0003; U0005 ==

== ENCOUNTER 2021-11-25 10:00 | Emergency (ER) | payer BC, SELFPAY ==
[2021-11-25] VITALS (7 sets, daily range): BP systolic 115–180; BP diastolic 61–100; PULSE 66–88; RESP 16–28; TEMP 36.6–37; O2SAT 95–98; BMI 38.7; BMI 39.9
--- NOTE | 2021-11-25 10:16 | HMH.EDGENADL ---
ED Disposition Clinical Impression: Ureteral calculus Disposition: Home, Self-Care Condition on Discharge: Good Instructions: DI for Kidney Stones Additional Instructions: Additional instructions for KIDNEY STONE (URETERAL CALCULUS): See your physician as soon as possible for further evaluation. Drink plenty of fluids. Strain your urine and save any stones you catch. Return immediately if you develop a fever or have uncontrollable vomiting or uncontrollable pain. What is known about DIET and KIDNEY STONES: Most kidney stones contain calcium oxalate. The logical assumption would be that you should avoid calcium and oxalate in your diet. Contrary to what you would think, this is not necessarily the case. What is actually recommended for kidney stone prevention is a diet that contains MODERATELY HIGH AMOUNTS OF CALCIUM and is LOW IN SODIUM with PLENTY OF FLUIDS. Avoiding oxalate containing foods is recommended by some experts, but is controversial. Following the DASH (Dietary Approaches to Stop Hypertention) has been shown to significantly reduce the incidence of kidney stones. The DASH diet encourages you to reduce the sodium in your diet and eat a variety of foods rich in nutrients that help lower blood pressure, such as potassium, calcium and magnesium. Recommendations: Fluids: It is widely agreed upon that you need to drink plenty of fluids. A minimum would be 8-10 glasses (8 oz each) of fluid per day. Some experts recommend as much as 14-15 glasses a day. Sodium: The way to lower calcium in your urine is to lower your sodium intake. Try not to get more than 1500 mg a day. Calcium: Dietary calcium prevents absorption of oxalate. Make sure you get about 1000 to 1200 mg a day. You can get enough calcium from dairy products without taking supplements. Calcium should be ingested with meals, not in between meals. You need to get your calcium at mealtime to decrease the absorption of oxalate from other foods. Oxalate: Although some experts recommend avoiding oxalate in your diet, there have been no studies that prove this works. Eating more calcium will reduce oxalate absorption, and is probably all that is needed to reduce oxalate in your urine. Oxalate containing foods are generally good for you in all other respects - leafy greens, nuts, etc... So avoiding them unnecessarily might not be the best thing for your health. If you want to do something to avoid oxalate, avoid spinach and rhubarb - those are extremely high in oxalate (or at least eat a high calcium meal with these). ALSO: If you retrieve your stone by straining your urine, take it to your physician for stone analysis, which can help tailor your dietary recommendations. For further reading, check out the [facility] web page about the kidney stone diet: [email or web address] Additional instructions for CONTROLLED SUBSTANCES: You have been prescribed a medication that is a controlled substance. Controlled substances include pain medications known as opiates and sedative nerve medications known as benzodiazepines. Tramadol, fioricet, and gabapentin are also controlled substances. Some common opiates include: Codeine (such as Tylenol #3) Hydrocodone (Vicodin, Lortab, Lorcet, [place]) Oxycodone (Percocet, Percodan, Oxycodone, Oxy IR) Some common benzodiazepines include: Diazepam (Valium) Lorazepam (Ativan) Alprazolam (Xanax) Clonazepam (Klonopin) Oxazepam (Serax) All of these controlled substances are highly addictive and frequently abused. Misuse can and frequently does lead to addiction as well as overdose and . Medication should be stored in a locked cabinet or other secure storage unit. Do not store the medication in a motor vehicle. Short term supplies, 3 days or less, are prescribed because of the highly addictive nature of the medication. Any of the controlled substan
--- NOTE | 2021-11-25 10:20 | CT_ITS ---
PROCEDURE INFORMATION: Exam: CT Abdomen And Pelvis Without Contrast Exam date and time: 11/25/2021 10:20 AM Age: 31 years old Clinical indication: Abdominal pain; Other: Groin; Additional info: R/O stone// pain in groin area TECHNIQUE: Imaging protocol: Computed tomography of the abdomen and pelvis without contrast. Radiation optimization: All CT scans at this facility use at least one of these dose optimization techniques: automated exposure control; mA and/or kV adjustment per patient size (includes targeted exams where dose is matched to clinical indication); or iterative reconstruction. COMPARISON: CT ABDOMEN PELVIS W CON 08/02/2020 11:08 PM FINDINGS: Liver: Normal. No mass. Gallbladder and bile ducts: Status post cholecystectomy. Pancreas: Normal. No ductal dilation. Spleen: Normal. No splenomegaly. Adrenal glands: Normal. No mass. Kidneys and ureters: Mild left perinephric stranding and hydronephrosis secondary to a 3.5 mm calculus located at or just inside the left ureterovesical junction. Stomach and bowel: Unremarkable. No obstruction. No mucosal thickening. Appendix: No evidence of appendicitis. Intraperitoneal space: Unremarkable. No free air. No significant fluid collection. Vasculature: Unremarkable. No abdominal aortic aneurysm. Lymph nodes: Unremarkable. No enlarged lymph nodes. Urinary bladder: Unremarkable as visualized. Reproductive: Unremarkable as visualized. Bones/joints: Unremarkable. No acute fracture. Soft tissues: Unremarkable. IMPRESSION: Mild left perinephric stranding and hydronephrosis secondary to a 3.5 mm calculus located at or just inside the left ureterovesical junction.
[2021-11-25 10:42] LABS: Basophils # 0.3 K/mm3 (0-0.2); Basophils % 2.6 % (0.1-2.0); Eosinophils # 0.1 K/mm3 (0.0-0.4); Eosinophils % 0.7 % (0.1-12.0); Hematocrit 48.6 % (42.0-52.0); Hemoglobin 15.9 g/dL (14.1-18.0); Lymphocytes # 2.6 K/mm3 (0.7-4.5); Lymphocytes % 26.5 % (10-50); Mean Corpuscular HGB Conc 32.8 g/dL (31.8-35.4); Mean Corpuscular Hemoglobin 29.2 pg (27.0-31.2); Monocytes # 0.7 K/mm3 (0.1-1.0); Monocytes % 6.9 % (1.7-9.3); Neutrophils # 6.3 K/mm3 (1.8-7.8); Neutrophils % 63.2 % (37.0-80.0); Platelet Count 384 K/mm3 (142-424); Red Blood Count 5.46 M/mm3 (4.60-6.20); Red Cell Distribution Width 13.1 % (11.5-17.5); White Blood Count 9.9 K/mm3 (4.8-10.8)
[2021-11-25 10:49] LABS: Microscopic, Urine URINE MICROSCOPIC (MICROSCOPIC)
[2021-11-25 10:50] LABS: Appearance,Urine CLEAR (Clear); Bilirubin,Urine Negative (Negative); Blood, Urine 3+ (Negative); Color,Urine YELLOW (Yellow); Glucose,Urine (UA) Negative (Negative); Ketones,Urine Negative (Negative); Leukocyte Esterase,Urine Negative (Negative); Nitrate,Urine Negative (Negative); PH,Urine 5.5 (5.0-8.5); Protein,Urine Negative (Negative); Specific Gravity, Urine >= 1.030 (1.005-1.030); Urobilinogen,Urine 0.2 EU/dl (0.2)
--- NOTE | 2021-11-25 11:07 | PC.NURSE ---
pt to radiology
[2021-11-25 11:08] LABS: Chloride 107 mmol/L (98-107)
[2021-11-25 11:09] LABS: Potassium 4.1 mmoL/L (3.5-5.1); Sodium 136 mmol/L (136-145)
[2021-11-25 11:09] LABS: Amorphous Sediment,Urine 1+ /lpf; Bacteria,Urine 1+ /lpf
[2021-11-25 11:11] LABS: Alanine Aminotransferase 35 U/L (12-78); Alkaline Phosphatase 76 U/L (38-126); Aspartate Amino Transferase 31 U/L (17-59); Bilirubin,Total 0.6 mg/dl (0.2-1.3); Blood Urea Nitrogen 11 mg/dl (9-20); Creatinine Clearance Estimated 230 mL/min (50-200); Estimated Glomerular Filt Rate 112 ml/min (>60); GFR (African American) 136 ML/MIN (>60)
[2021-11-25 11:12] LABS: Albumin Level 4.7 g/dl (3.5-5.0); Albumin/Globulin Ratio 1.6 (1.1-1.8); Anion Gap 15.1 mEq/L (5-15); Calcium 8.8 mg/dl (8.4-10.2); Carbon Dioxide 18 mmol/L (22.0-30.0); Globulin 2.9 g/dL (1.3-3.2); Glucose 114 mg/dl (74-100); Total Protein,Serum 7.6 g/dl (6.3-8.2)
--- NOTE | 2021-11-25 11:15 | PC.NURSE ---
pt back from radiology, hooked back up to vital signs
== END 2021-11-25 13:24 | disposition home or self-care (01) ==
PROVIDERS: Emergency Provider Emergency Medicine; PCP Internal Medicine Adolescent Medicine
DX: N20.1 Calculus of ureter (principal); F41.9 Anxiety disorder, unspecified; F17.290 Nicotine dependence, other tobacco product, uncomplicated
CPT/HCPCS: 74176; 80053; 81001; 85025; 96365; 96375; 96376; 99283; J2405

== ENCOUNTER 2021-11-25 18:21 | Emergency (ER) | payer BC, SELFPAY ==
[2021-11-25 18:22] VITALS: BP 161/87; PULSE 87; RESP 20; TEMP 36.6; O2SAT 98; BMI 38.7
[2021-11-25 19:30] VITALS: BP 136/86; PULSE 82; RESP 16; O2SAT 94
--- NOTE | 2021-11-25 19:45 | HMH.EDGENADL ---
ED Disposition Clinical Impression: Ureteral calculus Disposition: Home, Self-Care Condition on Discharge: Good Instructions: DI for Kidney Stones Additional Instructions: Continue medications as prescribed. Add Toradol as prescribed. Additional instructions for KIDNEY STONE (URETERAL CALCULUS): Drink plenty of fluids. Strain your urine and save any stones you catch. Return immediately if you develop a fever or have uncontrollable vomiting or uncontrollable pain. Follow-up with urology, Dr. Llanes, call Saturday to make appointment. Prescriptions: Ketorolac Tromethamine [Toradol 10mg tablet] 10 mg PO Q6HP PRN #10 tab PRN Reason: Moderate Pain Transmission Status: Pending to [id number] Referrals: Charles Lopez MD [Primary Care Provider] - Josafat Llanes MD [Staff Physician] - - Critical Care Critical Care Time: No Attestation: On 11/25/21, the high probability of a clinically significant, sudden or life threatening deterioration of the following system(s) required my full and direct attention, intervention and personal management. The time I documented below is in addition to time spent performing reported procedures but includes the following listed in this critical care notation. Medical Decision Making - Janes Inquiry Pt receiving controlled substance: Yes Janes was queried for this patient: Yes Risks and benefits of using a controlled substance: were discussed with pt by me Vital Signs: 11/25/21 18:22 Temperature 98 F Temperature Source Oral Pulse Rate [Radial] 87 Respiratory Rate 20 Blood Pressure [Right Arm] 161/87 H Blood Pressure Mean [Right Arm] 111 Blood Pressure Position [Right Arm] Sitting 02 Sat by Pulse Oximetry 98 Oxygen Delivery Method Room Air Orders (Tests/Meds): ED MEDICATIONS Discontinued Medications Generic Name Dose Route Start Last Admin Trade Name Freq PRN Reason Stop Dose Admin Hydromorphone HCl 1 mg 11/25/21 18:38 11/25/21 18:39 Hydromorphone 2mg/Ml Syringe IV 11/25/21 18:39 1 mg ONCE ONE Administration Hydromorphone HCl 1 mg 11/25/21 19:49 Hydromorphone 2mg/Ml Syringe IV 11/25/21 19:50 ONCE ONE Ketorolac Tromethamine 30 mg 11/25/21 18:38 11/25/21 18:39 Ketorolac 30mg/Ml Vial IV 11/25/21 18:39 30 mg ONCE ONE Administration Ondansetron HCl 4 mg 11/25/21 18:38 11/25/21 18:39 Ondansetron 4mg/2ml Vial IV 11/25/21 18:39 4 mg ONCE ONE Administration General Adult HPI - General Chief complaint: PAIN Stated complaint: KIDNEY STONES Time Seen by Provider: 11/25/21 19:46 Mode of Arrival: Ambulatory Limitations: No Limitations Description of Symptoms (Recalled from ER Triage Doc. by RN): TO ED PER [facility] CAR WITH C/O LT SIDE FLANK PAIN PT SEEN IN ED TODAY WITH SAME DX WITH KIDNEY STONE. PT STATES PAIN HAS RETURNED AND NO RELIEF WITH HOME PAIN MEDS - History of Present Illness HPI narrative: Patient was seen by me earlier today in this emergency department for a left ureteral calculus. He was pain-free at discharge. He says that he filled his prescriptions and went home and started having pain again. He took all of his medications except for Flomax. He says that the pain continued to intensify and I did not want it to get as bad as it was the first time so I came back in . Patient has been medicated with Toradol and Dilaudid prior to my arrival in the room and says his pain is much better, but still having twinges of 5/10. No other new symptoms. - Related Data Home Medications Medication Instructions Recorded Confirmed Venlafaxine HCl [Venlafaxine HCl 37.5 mg PO DAILY 08/02/20 08/24/20 ER] Previous Rx's Medication Instructions Recorded Acetaminophen with Codeine 1 - 2 tab PO Q6HP PRN #12 tab 08/03/20 [Tylenol with Codeine #3 tablet] Promethazine HCl [Phenergan 25mg 25 mg PO Q6HP PRN #8 tab 08/03/20 tablet] Ketorolac Tromethamine [Toradol 10 mg PO Q6HP PRN #10 ta
[2021-11-25 20:24] VITALS: BP 131/76; PULSE 87; RESP 14; TEMP 36.7; O2SAT 95
== END 2021-11-25 20:26 | disposition home or self-care (01) ==
PROVIDERS: Emergency Provider Emergency Medicine; PCP Internal Medicine Adolescent Medicine
DX: N20.1 Calculus of ureter (principal); F41.9 Anxiety disorder, unspecified; F17.290 Nicotine dependence, other tobacco product, uncomplicated
CPT/HCPCS: 96374; 96375; 96376; 99281; J2405

== ENCOUNTER 2023-05-23 15:54 | Emergency (ER) | payer BC, SELFPAY ==
[2023-05-23 16:00] VITALS: BP 143/75; PULSE 81; RESP 20; TEMP 37; O2SAT 96; BMI 41.0
--- NOTE | 2023-05-23 16:12 | EXP.UTC ---
Discharge Plan Disposition Patient Disposition: Home, Self-Care Condition: Good Prescriptions Prescriptions: New azithromycin [Zithromax Z-Laron] 250 mg tablet See Rx Instructions .ROUTE .COMPLEX 5 Days Qty: 6 0RF Rx Instructions: For 250 mg dose pack: take 500 mg today (day 1), then 250 mg for 4 days (days 2-5) prednisone [prednisone] 20 mg tablet 20 mg PO BID 5 Days Qty: 10 0RF benzonatate 100 mg capsule 100 mg PO TID PRN (Reason: cough) Qty: 30 0RF guaifenesin [Mucinex] 600 mg tablet extended release 12hr 600 mg PO BID PRN (Reason: cough) Qty: 20 0RF albuterol sulfate [Proventil HFA] 90 mcg/actuation HFA aerosol inhaler 1 - 2 inh inhalation Q6H PRN (Reason: shortness of breath or wheezing) Qty: 8.5 0RF No Action oxycodone-acetaminophen 1 EACH tablet 1 tab PO Q6HP PRN (Reason: Moderate To Severe Pain) Qty: 10 0RF tamsulosin 0.4 MG capsule 0.4 mg PO HS Qty: 10 0RF ondansetron 4 MG tablet,disintegrating 4 mg PO TIDP PRN (Reason: Nausea And Vomiting) Qty: 10 0RF venlafaxine 37.5 MG capsule,extended release 24hr 37.5 mg PO DAILY promethazine 25 MG tablet 25 mg PO Q6HP PRN (Reason: Nausea) Qty: 8 0RF acetaminophen-codeine 1 EACH tablet 1 - 2 tab PO Q6HP PRN (Reason: PAIN) Qty: 12 0RF ketorolac 10 MG tablet 10 mg PO Q6HP PRN (Reason: Moderate Pain) Qty: 10 0RF Referrals Follow up/Referrals: Vashti Mata APRN [Primary Care Provider] - See instructions Activity Restrictions/Add. Instructions Additional Instructions/Restrictions: Start antibiotic today. Be sure to complete entire prescription even if feeling better Monitor temp. Tylenol every 4 hours as needed and / or ibuprofen every 6 hours as needed ( As long as your primary care physician has told you that it ok to take both. For fever/aches/pains ER if no less than 101 despite Tylenol or Motrin Humidifier/vaporizer or hot steamy shower Inhaler every 4-6 hours as needed like we discussed. If unsure how to use it, ask pharmacist to demonstrate how. Should help open airways and improve cough, wheezing, and shortness of breath Mucinex during the day for your cough and cough suppressant only at night. Be sure to drink lots of water. *Tessalon Perles will not cause drowsiness but use at bedtime to help stop cough so that you may get some rest. *Start steroid tomorrow. Helps with inflammation therefore, cough and wheezing. Follow directions on the package. Reviewed side effects. Patient reports taking them before. Follow up IMMEDIATELY for new or worsening of symptoms OR no noticeable improvement over the next 48-72 hours. 911 immediately for any life threatening symptoms such as chest pain or difficulty breathing Clinical Impressions Clinical Impression: Bronchitis Instructions Patient Instructions: Acute Bronchitis, DI for Sinusitis Discharge [place]oc[place] Bates [facility] [place] General Stated complaint: emerson Mode of Arrival: Ambulatory Source of Information: Patient Limitations: No Limitations Time Seen by Provider: 05/23/23 16:12 Description of Symptoms (Recalled from Triage Doc. by RN): PATIENT C/O PRODUCTIVE COUGH AND CONGESTION X 2 WEEKS HEENT Symptoms (Recalled from RN notes): Yes Resp Symptoms (Recalled from RN notes): Yes Skin Symptoms (Recalled from RN notes): No MS Symptoms (Recalled from RN notes): No Functional Status (Recalled from RN notes): WNL History of Present Illness Provider Complaint: Patient state that he has been having cough, sinus and chest congestion and coughing up mucous States that he thought he may have Bronchitis but thought it should be better by now States that he wanted to come in and get checked Related Data Home Medications Medication Instructions Recorded Confirmed venlafaxine 37.5 mg 37.5 mg PO DAILY Depression 08/02/20 08/24/20 capsule,extended release 24 hr Previous Rx's Medication Instru
[2023-05-23 16:34] VITALS: BP 143/75; PULSE 81; RESP 20; TEMP 37; O2SAT 96
== END 2023-05-23 16:41 | disposition home or self-care (01) ==
PROVIDERS: Emergency Provider Nurse Practitioner; PCP Nurse Practitioner Family
DX: J20.9 Acute bronchitis, unspecified (principal); J01.90 Acute sinusitis, unspecified
CPT/HCPCS: 96372; 99204; 99212; G0463; J0696

== ENCOUNTER 2023-10-11 11:15 | Observation (INO) | payer BC, SELFPAY ==
[2023-10-11] VITALS (21 sets, daily range): BP systolic 111–165; BP diastolic 61–102; PULSE 83–122; RESP 16–19; TEMP 36.6; O2SAT 92–98; BMI 41.3; BMI 41.8
--- NOTE | 2023-10-11 11:26 | ECG_ITS ---
APPROVED REPORT Exam: Resting ECG HR:92 bpm ECG Measurements Heart Rate 92 AXES AZ 127 P 70 QRSd 99 QRS 107 QT 294 T -24 QTc 343 Conclusion SINUS RHYTHM RIGHT AXIS DEVIATION [QRS AXIS > 100] ST ELEVATION, CONSIDER ANTERIOR INJURY [MARKED ST ELEVATION W/O NORMALLY INFLECTED T-WAVE IN V2-V5] ACUTE VA UNCONFIRMED REPORT Electronically signed by : Bertin Goins MD 10/12/2023 08:46:09
--- NOTE | 2023-10-11 11:31 | PC.NURSE ---
DR ARCOS AT BEDSIDE
--- NOTE | 2023-10-11 11:35 | XR_ITS ---
FINAL REPORT CLINICAL HISTORY: chest pain FINDINGS: TWO-VIEW CHEST The heart size is normal. The mediastinum is normal. The lungs are underinflated with mild atelectasis. There is no pneumothorax. IMPRESSION: Underinflation with mild atelectasis. Reviewed, Interpreted and Dictated by Matt Barney MD Transcribed by Tiffanie Merchant Authenticated and [facility]
--- NOTE | 2023-10-11 11:47 | HMH.EDGENADL ---
Discharge Plan Disposition Patient Disposition: Still a Patient Clinical Impressions Clinical Impression: STEMI (ST elevation myocardial infarction) Discharge ED Provider: Vito Hernadez Adult HPI General Chief complaint: Chest Pain Stated complaint: abdominal pain Time Seen by Provider: 10/11/23 11:25 Mode of Arrival: Ambulatory Source of Information: Patient Limitations: No Limitations Description of Symptoms (Recalled from ER Triage Doc. by RN): PT REPORTS CHEST PAIN THAT STARTED LAST NIGHT AROUND 1800, BETTER WITH REST. RETURNED THIS AM. OCCASIONALLY RADIATES DOWN LEFT ARM. REPORTS SHORTNESS OF BREATH. RECENTLY HAD N/V/D History of Present Illness HPI narrative: Patient complains of substernal chest pain, radiating to the arm, nonexertional, nonpleuritic that started this evening, has been constant, he had preceding symptoms that he describes as a GI bug with nausea, vomiting. He denies any abdominal pain. He has not had any further episodes of emesis, no cardiac history however reports significant family cardiac history. No previous therapies. No palpitations, no shortness of breath. Related Data Home Medications Medication Instructions Recorded Confirmed No Known Home Medications 10/11/23 10/11/23 Allergies Allergy/AdvReac Type Severity Reaction Status Date / Time No Known Allergies Allergy Verified 08/24/20 14:26 [facility] Disclaimer: The information contained in this section may have been updated after the patient was seen, as this information can be updated by other users. Medical History Hypertension Surgical History H/O umbilical hernia repair History of cholecystectomy Family History Family history of acute congestive heart failure Grandfather Grandmother Social History Smoking Status: Current every day smoker tobacco type: smokeless tobacco alcohol intake: current substance use type: denies use current occupational status: employed Travel in the last 8 weeks: None household members: significant other housing: house current occupation: [employer] current occupational exposures/hazards: No caffeine: Yes ROS Obtained: Yes Systems reviewed as appropriate & no additional complaints except as documented As per HPI Physical Exam General General appearance: alert and in no apparent distress Head Head exam: atraumatic and normocephalic Eye Eye exam: Present normal appearance Neck Neck exam: Present normal inspection Chest Chest inspection: Present normal inspection and symmetric chest wall rise Respiratory Respiratory exam: Present normal lung sounds bilaterally; Absent respiratory distress Cardiovascular Cardiovascular exam: Present regular rate and normal rhythm Abdominal Exam Abdominal exam: Present soft Neurological Exam Neurological exam: Present alert and oriented X3 Psychiatric Psychiatric exam: Present normal affect and normal mood Skin Skin exam: Present warm and dry Medical Decision Making Medical Records Medical records reviewed: Yes I reviewed the patient's medical records. Janes Inquiry Pt receiving controlled substance: No Vital Signs: 10/11/23 11:16 10/11/23 11:31 10/11/23 12:15 Temperature 97.9 F 97.9 F Temperature Source Oral Oral Pulse Rate 90 83 Pulse Rate [Apical] 94 H Respiratory Rate 18 18 Blood Pressure 132/100 H 126/83 Blood Pressure [Right Arm] 138/102 H Blood Pressure Mean 109 Blood Pressure Mean [Right Arm] 114 Blood Pressure Source Automatic Cuff Blood Pressure Source [Right Arm] Automatic Cuff Blood Pressure Position Sitting Blood Pressure Position [Right Arm] Sitting 02 Sat by Pulse Oximetry 98 97 Oxygen Delivery Method Room Air Room Air Room Air Lab Data Lab Results 10/11/23 11:20: WBC 6.4, RBC 6.06, Hgb 17.9, Hct 53.7 H, MCV 88.6, MCH 29.6, MCHC 33.4, RDW 13.7, Plt Count 198, MPV 7.6, Neut % (Auto) 71.0, Lymph % (Auto) 17.3, [place] % (Auto) 10.2 H, Eos % (Auto) 0.8, Baso % (Auto) 0.6, Neut # (Auto) 4.6, Lymph # (Auto) 1.1, [place] # (Auto) 0.7, Eos # (Auto) 0.1, Baso # (Auto) 0.0, ESR 3, Sodium 138, Potassium 4.0, Chloride 106, Carbon Dioxide 27, Anion Gap 9.0, BUN 10, Creatinine 1.00, Estimated Creat Clear 104, Estimated GFR 86, Est GFR ( Amer) 103, Glucose 118 H, Calcium 8.3 L, Total Bilirubin 0.4, AST 58, ALT 46, Alkaline Phosphatase 57, Troponin I 6.59 H, C-Reactive Protein 20.3 H, Total Protein 6.7, Albumin 4.0, Globulin 2.7, Albumin/Globulin Ratio 1.5, Lipase 108 10/11/23 11:20 10/11/23 11:20 Orders (Tests/Meds): ED MEDICATIONS Generic Name Dose Route Start Last Admin Trade Name Freq PRN Reason Stop Dose Admin Belladonna Alkaloids 60 ml 10/11/23 16:27 Belladonna Alkaloids 60 Ml Ml PO 10/11/23 16:28 ONCE ONE Fentanyl Citrate 50 mcg 10/11/23 12:12 10/11/23 13:03 Fentanyl 100mcg/2ml Vial IV 10/12/23 00:12 200 mcg Q3MINP PRN Administration Moderate to Severe Pain (4-10) Fentanyl Citrate 25 mcg 10/11/23 12:12 Fentanyl 250mcg/5ml Vial IV 10/12/23 00:12 Q3MINP PRN Moderate to Severe Pain (4-10) Fentanyl Citrate 50 mcg 10/11/23 12:12 Fentanyl 250mcg/5ml Vial IV 10/12/23 00:12 Q3MINP PRN Moderate to Severe Pain (4-10) Fentanyl Citrate 25 mcg 10/11/23 12:12 Fentanyl 100mcg/2ml Vial IV 10/12/23 00:12 Q3MINP PRN Moderate to Severe Pain (4-10) Flumazenil 0.2 mg 10/11/23 12:12 Flumazenil 0.1mg/Ml 5ml Vial IV 10/12/23 00:12 NEEDED PRN Sedation Sodium Chloride 1,000 mls @ 25 mls/hr 10/11/23 12:15 10/11/23 13:03 Sod Chloride 0.9% 500ml Bag IV 10/12/23 12:12 25 mls/hr .Q25H MADELYN Administration Midazolam HCl 1 mg 10/11/23 12:12 Midazolam 2mg/2ml Vial IV 10/12/23 00:12 Q3MINP PRN Sedation Midazolam HCl 1 mg 10/11/23 12:12 10/11/23 13:03 Midazolam Hcl 1mg/1ml 5ml Vial IV 10/12/23 00:12 8 mg Q3MINP PRN Administration Sedation Naloxone HCl 0.4 mg 10/11/23 12:12 Naloxone 0.4mg/Ml Vial IV 10/12/23 00:12 Q5MINP PRN Decreased Respirations Discontinued Medications Generic Name Dose Route Start Last Admin Trade Name Za PRN Reason Stop Dose Admin Aspirin 325 mg 10/11/23 11:35 10/11/23 11:49 Aspirin 325mg Tablet PO 10/11/23 11:36 325 mg ONCE ONE Administration Diphenhydramine HCl 50 mg 10/11/23 12:12 10/11/23 13:02 Diphenhydramine 50mg/Ml Vial IV 10/11/23 12:13 50 mg ONCE ONE Administration Gadoteridol 28 ml 10/11/23 15:36 10/11/23 15:37 Gadoteridol Inj 17ml Syringe IV 10/11/23 15:37 28 ml ONCE ONE Administration Heparin Sodium (Porcine) 10,000 unit 10/11/23 12:12 10/11/23 13:02 Heparin 1,000 Units/Ml 10ml Vial (Library [facility]per) IV 10/11/23 16:12 12,700 unit NEEDED PRN Administration Emergency Box Developmental Behavioral Physician Heparin Sodium/Sodium Chloride 3,000 unit 10/11/23 12:12 10/11/23 13:03 Heparin 1,000 Units/500ml Ns ([facility]) IV 10/11/23 12:13 3,000 unit ONCE ONE Administration Lactated Ringer's 1,000 mls @ 999 mls/hr 10/11/23 11:35 10/11/23 11:48 Lactated Ringer's 1000 Ml Bag IV 10/11/23 12:35 999 mls/hr .Q1H1M ONE Administration Iopamidol 50 ml 10/11/23 15:56 10/11/23 15:57 Iopamidol-370 (76%);100ml Bottle IV 10/11/23 15:57 50 ml ONCE ONE Administration Lidocaine HCl 20 ml 10/11/23 12:12 Lidocaine 1% 5ml Pf Vial IJ 10/11/23 12:13 ONCE ONE Lidocaine HCl 20 ml 10/11/23 12:12 10/11/23 13:02 Lidocaine 1% 10ml Mdv IJ 10/11/23 12:13 10 ml ONCE ONE Administration Nitroglycerin 800 mcg 10/11/23 12:12 10/11/23 13:02 Nitroglycerin 800mcg/8ml Syr ([facility]) IA 10/11/23 16:12 800 mcg NEEDED PRN Administration Emergency Box Developmental Behavioral Physician Ondansetron HCl 4 mg 10/11/23 11:35 10/11/23 11:38 Ondansetron 4mg Odt SL 10/11/23 11:36 Not Given ONCE ONE Ondansetron HCl 4 mg 10/11/23 11:39 10/11/23 11:48 Ondansetron 4mg/2ml Vial IV 10/11/23 11:40 4 mg ONCE ONE Administration Sodium Chloride 10 ml 10/11/23 15:36 10/11/23 15:37 Sodium Chloride 0.9% 10ml Syr (Rad Only) IV 10/11/23 15:37 10 ml ONCE ONE Administration Sodium Chloride 25 ml 10/11/23 15:36 10/11/23 15:37 Sodium Chloride 0.9% 50ml Bag IV 10/11/23 15:37 25 ml ONCE ONE Administration Verapamil HCl 2.5 mg 10/11/23 12:12 10/11/23 13:02 Verapamil 2.5mg/Ml 2ml Vial IV 10/11/23 12:13 2.5 mg ONCE ONE Administration ORDERS Category Date Time Status XR chest 2V Stat Exams 10/11/23 11:35 Completed CBC w/Auto Diff [Complete Blood Count Auto Diff] Stat Lab 10/11/23 11:20 Completed CMP [Comprehensive Metabolic Panel] Stat Lab 10/11/23 11:20 Completed CRP [C-Reactive Protein] Stat Lab 10/11/23 11:20 Completed Complete Blood Count Auto Diff AMLAB Lab 10/12/23 06:00 Ordered Comprehensive Metabolic Panel AMLAB Lab 10/12/23 06:00 Ordered ESR [Erythrocyte Sedimentation Rate] Stat Lab 10/11/23 11:20 Completed Lipase Stat Lab 10/11/23 11:20 Completed Lipid Panel Routine Lab 10/11/23 15:44 Completed Magnesium AMLAB Lab 10/12/23 06:00 Ordered Trop I [Troponin I] Routine Lab 10/11/23 15:44 Completed Troponin I Q2H Lab 10/11/23 11:20 Completed HEART Score History (anamnesis): Moderately suspicious ECG: Significant ST-deviation Age: <45 years Risk factors: No known risk factors Troponin: > 3x normal limit HEART Score: 5 Medical Decision Narrative: Patient with history and exam per above presenting for evaluation of chest pain Diagnoses considered include ACS, aortic dissection, pericarditis, PE, pneumothorax, pneumonia, GERD, costochondritis, referred pain ED workup and treatment included: EKG, troponins, CBC, CMP, lipase Labs were independently interpreted by me, significant for significantly elevated initial troponin EKG was independently visualized and interpreted by me, significant for concern for hyper acute T waves, with reciprocal depression in inferior leads, ST elevation Given the symptoms, Library [facility] was activated, patient remained hemodynamically stable while in the emergency department, was taken emergently to [facility]. Critical Care Critical Care Time Critical Care Time: No
[2023-10-11] MEDS: ONDANSETRON 4MG/2ML VIAL 4 MG IV (11:48)
[2023-10-11] MEDS: LACTATED RINGERS 1000ML 1,000 ML 999 ML IV (11:48)
[2023-10-11] MEDS: ASPIRIN 325MG TABLET 325 MG PO (11:49)
[2023-10-11 11:50] LABS: Chloride 106 mmol/L (98-107); Sodium 138 mmol/L (136-145)
[2023-10-11 11:51] LABS: Lipase 108 U/L (23-300)
[2023-10-11 11:53] LABS: Alanine Aminotransferase 46 U/L (12-78); Albumin/Globulin Ratio 1.5 (1.1-1.8); Alkaline Phosphatase 57 U/L (38-126); Aspartate Amino Transferase 58 U/L (17-59); Bilirubin,Total 0.4 mg/dl (0.2-1.3); Blood Urea Nitrogen 10 mg/dl (9-20); Carbon Dioxide 27 mmol/L (22.0-30.0); Creatinine Clearance Estimated 104 mL/min (50-200); Estimated Glomerular Filt Rate 86 ml/min (>60); GFR (African American) 103 ML/MIN (>60); Globulin 2.7 g/dL (1.3-3.2); Total Protein,Serum 6.7 g/dl (6.3-8.2)
[2023-10-11 11:54] LABS: Calcium 8.3 mg/dl (8.4-10.2); Glucose 118 mg/dl (74-100)
[2023-10-11 11:57] LABS: Basophils % 0.6 % (0.1-2.0); Eosinophils # 0.1 K/mm3 (0.0-0.4); Eosinophils % 0.8 % (0.1-12.0); Hematocrit 53.7 % (42.0-52.0); Hemoglobin 17.9 g/dL (14.1-18.0); Lymphocytes # 1.1 K/mm3 (0.7-4.5); Lymphocytes % 17.3 % (10-50); Mean Corpuscular HGB Conc 33.4 g/dL (31.8-35.4); Mean Corpuscular Hemoglobin 29.6 pg (27.0-31.2); Mean Corpuscular Volume 88.6 fl (80-94); Mean Platelet Volume 7.6 fl (7.4-10.4); Monocytes # 0.7 K/mm3 (0.1-1.0); Monocytes % 10.2 % (1.7-9.3); Neutrophils # 4.6 K/mm3 (1.8-7.8); Platelet Count 198 K/mm3 (142-424); Red Blood Count 6.06 M/mm3 (4.60-6.20); Red Cell Distribution Width 13.7 % (11.5-17.5); White Blood Count 6.4 K/mm3 (4.8-10.8)
--- NOTE | 2023-10-11 12:01 | ECG_ITS ---
APPROVED REPORT Exam: Resting ECG HR:81 bpm ECG Measurements Heart Rate 81 AXES MN 127 P 64 QRSd 98 QRS 109 QT 301 T -26 QTc 338 Conclusion SINUS RHYTHM RIGHT AXIS DEVIATION [QRS AXIS > 100] ST ELEVATION, PROBABLY EARLY REPOLARIZATION [ST ELEVATION WITH NORMALLY INFLECTED T-WAVE] NONSPECIFIC ST & T-WAVE ABNORMALITY ABNORMAL ECG UNCONFIRMED REPORT Electronically signed by : Bertin Goins MD 10/12/2023 08:45:53
[2023-10-11 12:09] LABS: Troponin I 6.59 ng/ml (0.00-0.034)
--- NOTE | 2023-10-11 12:10 | PC.NURSE ---
STEMI ALERT CALLED
--- NOTE | 2023-10-11 12:15 | PC.NURSE ---
pt being transported to laboratory monitor for procedure
--- NOTE | 2023-10-11 12:17 | IR_ITS ---
APPROVED REPORT Patient Location: Emergent Wardrobe Manager: LARRY Sow RT (R) PROCEDURES Left heart catheterization Left ventriculogram Selective coronary angiogram INDICATION Acute anterior ST elevation myocardial infarction Informed consent was obtained prior to the procedure. COMPLICATIONS None Estimated Blood Loss: Less than 10 mls TECHNIQUE One percent lidocaine used to anesthetize the right anterior aspect of the wrist. The right radial artery was accessed via the Seldinger technique. A 6 Moldovan sheath was placed in the right radial artery. 2.5 mg of Verapamil, 800 mcg of nitroglycerin, 1mg Lidocaine and 5000 U Heparin were given through the arterial sheath. The papa catheter and 6 Moldovan JL 3 were also used to perform left heart catheterization, left ventriculogram and selective coronary angiogram. At the end of the procedure the sheath was removed good hemostasis was achieved using Traclet band, patient was transferred to the postop holding area in stable condition. ANGIOGRAPHIC RESULTS The left main artery Large normal The left anterior descending artery Large normal and wraps the apex The circumflex artery Normal The right coronary artery Normal The ABDALLA ventriculogram reveals Normal 65% The left ventricular end-diastolic pressure 20 to 25 mmHg IMPRESSION Normal coronary arteries Normal ejection fraction Elevated LVEDP Suspected myocarditis PLAN 1. Supportive care 2. Inpatient cardiac MRI Electronically signed by : Fuad Wade MD 10/11/2023 13:10:05
--- NOTE | 2023-10-11 12:35 | PC.NURSE ---
Chest shaved, patient placed on zoll. Attempted to shave cath sites house stated laboratory mechanic helper was ready for patient that he will get shaved there.
[2023-10-11] MEDS: NITROGLYCERIN 800MCG/8ML SYR (CATH LAB) 800 MCG IA (13:02)
[2023-10-11] MEDS: VERAPAMIL 2.5MG/ML 2ML VIAL 2.5 MG IV (13:02)
[2023-10-11] MEDS: HEPARIN 1,000 UNITS/ML 10ML VIAL (CATH LAB) 10000 UNIT IV (13:02)
[2023-10-11] MEDS: LIDOCAINE 1% 10ML MDV 20 ML IJ (13:02)
[2023-10-11] MEDS: diphenhydrAMINE 50MG/ML VIAL 50 MG IV (13:02)
[2023-10-11] MEDS: FENTANYL 100MCG/2ML VIAL 50 MCG IV (13:03)
[2023-10-11] MEDS: MIDAZOLAM HCL 1MG/1ML 5ML VIAL 1 MG IV (13:03)
[2023-10-11] MEDS: HEPARIN 1,000 UNITS/500ML NS (CATH LAB) 3000 UNIT IV (13:03)
[2023-10-11] MEDS: 0.9 % SODIUM CHLORIDE 500 ML 25 ML IV (13:03)
--- NOTE | 2023-10-11 13:40 | PC.NURSE ---
arrived to floor by stretcher from labor relations teacher
--- NOTE | 2023-10-11 14:14 | HMH.PHAINT1 ---
Pharmacy Intervention Comments: MEDICATION RECONCILIATION COMPLETE USING EXTERNAL PHARMACY FILL HISTORY AND LIST FROM MD OFFICE VISIT. NO RECENT FILL HISTORY AND LIST FROM MD OFFICE WAS FROM OCTOBER 2022.
--- NOTE | 2023-10-11 14:20 | MR_ITS ---
APPROVED REPORT Analytic Manager: CLINICAL INDICATION Chest pain, elevated troponin, ECG changes. Evaluate for myocarditis TECHNIQUE Image Acquisition: Cardiac magnetic resonance (CMR) was performed on Siemens Espree MRI 1.5T scanner. Software platform sequences were performed using the Siemens pocketfungames MR B19 platform. A set of three-plane, low-resolution, large [id number] localizers were initially acquired. Then axial, coronal, sagittal TrueFISP, as well as axial HASTE images, were obtained. These were followed by gated TrueFISP breathold cinematic sequences obtained in the short axis with 8 mm slices and 2 mm gaps, 2-chamber (vertical long axis), 3-chamber, 4-chamber (horizontal long axis). A bolus of contrast was injected intravenously with first-pass sequences obtained in the short axis and four-chamber planes. After approximately 10 minutes, a TI writer sequence was performed to determine the optimal TI time. Using the optimized TI time, delayed contrast enhancement segmented inversion???recovery TurboFLASH sequences were obtained in the short axis, 2-chamber, 3-chamber, and 4-chamber projections. 2D-velocity phase mapping was performed. Functional parameters were calculated by offline analysis on an independent workstation ([employer], [employer]). Contrast: ProHance??? (Gadoteridol) FINDINGS MORPHOLOGY AND FUNCTION Left ventricle: The left ventricle is normal in size. The indexed left ventricular end-diastolic volume (LVEDVi) is 68 ml/m2 (reference range 57-105 ml/m2 in males, 56-96 ml/m2 in females). Low-normal left ventricular systolic function is present. There is mild increase in left ventricular wall thickness (maximum thickness 11.5 mm). There are no regional wall motion abnormalities noted. LVEF is calculated at 55.7 % (reference range 57-77%). Right ventricle: The right ventricle is normal in size. The indexed right ventricular end-diastolic volume (RVEDVi) is 92 ml/m2 (reference range 61-121 ml/m2 in males, 48-112 ml/m2 in females). There is mild reduction in right ventricular systolic function. RVEF is calculated at 42.8% (reference range 52-72% in males, 51-71% in females). Atria: The left atrium is normal in size. The maximum indexed left atrial volume is 36 ml/m2 (reference range 26-52 ml/m2 in males, 27-53 ml/m2 in females). The right atrium is normal in size. The maximum indexed right atrial volume is 26 ml/m2 (reference range 18-90 ml/m2). Aorta: The diameter of the aortic annulus is normal, measuring 27 mm (coronal view reference range 21-30 mm in males, 19-27 mm in females). The diameter of the aortic sinus is normal, measuring 33 mm (coronal view reference range 25-42 mm in males, 24-36 mm in females). The diameter of the sinotubular junction is normal, measuring 28 mm (coronal view reference range 18-32 mm in males, 18-28 mm in females). The diameters of the ascending and descending thoracic aorta are normal. Main pulmonary artery: The main pulmonary artery diameter is normal. Pericardium: The pericardial thickness is normal. The pericardial thickness measures 1.5 cm (normal < 4.0 cm). There is no pericardial effusion. VALVES The valvular morphologies in the visualized sequences appear normal. There is no significant valvular stenosis or regurgitation of the mitral, aortic, tricuspid, or pulmonic valve noted visually. Systolic anterior motion of the mitral valve is not visualized. Ratio of pulmonary to systemic flow, Qp:Qs ratio = 1.1 (normal < or = 1.2), demonstrating no evidence of hemodynamically significant shunt. TISSUE CHARACTERIZATION Resting Perfusion: Normal myocardial blood flow at rest. No evidence of resting hypoperfusion. Myocardial Fibrosis and/or edema: Normal gadolinium kinetics are present. No evidence of late gadolinium enhancement is noted, consistent with absence of myocardial scarring, infarction, or necrosis. T2-weighted imaging demonstrates no evidence of myocardial edema or inflammation. OTHER No other significant findings are noted. However, this exam is focused on the cardiac structure and function. IMPRESSION Technically difficult study due to significant motion. Normal LV size with low-normal LV systolic function. LVEDVi= 68 ml/m2 and LVEF= 55.7 %. Normal RV size with mild reduction in RV systolic function. RVEDVi= 92 ml/m2 and RVEF= 42.8%. No atrial enlargement. No CMR evidence of myocardial scarring, infarction, or necrosis. No evidence of myocardial edema or inflammation. Perfusion analysis demonstrates normal blood flow at rest with no evidence of resting hypoperfusion. Ratio of pulmonary to systemic flow, Qp:Qs ratio = 1.1 (normal < or = 1.2), demonstrating no evidence of hemodynamically significant shunt. The above findings are consistent with normal LV systolic function and mild reduction in RV systolic function. No clear CMR evidence of myocarditis or pericarditis in this study. Note, however, that this was a technically difficult study due to significant motion during the acquisition of the exam sequences. COMPARISON None CRITICAL RESULT None COMMUNICATION The results of this study were communicated with the hospitalist and the on-call senior technical support engineer on the same day of the exam on 10/11/2023. The findings of this cardiac MR were reviewed, reported, and signed by Jose Juan Ross MD (Returned Goods Sorter). Conclusion Electronically signed by : Josephine Ross MD 10/20/2023 18:29:59
[2023-10-11 14:47] LABS: C-Reactive Protein 20.3 mg/L (0-4)
[2023-10-11 14:55] LABS: Erythrocyte Sedimentation Rate 3 mm/hr (0-15)
--- NOTE | 2023-10-11 15:23 | CA_ITS ---
APPROVED REPORT EXAM: Comprehensive 2D, Doppler, and color-flow Echocardiogram Billing Typist: Pearl Childers, RCS, RVS Ht: 5 ft 9 in Wt: 283lbs BSA: 2.39 BP: 117/75 mmHg Indications: Evaluate for myocarditits, HTN, CP, Obesity, Normal cardiac cath 10/11/23 2D Dimensions IVSd 0.00 cm EF AP4 44.60 % PWd 0.00 cm GL Strain -10.7 % LVDd 1.12 cm Aortic Root 3.07 cm Left Atrium 4.39 cm RVID Base (AP4) 3.27 cm (M/F) 2.5-4.1 LVOT 2.07 cm (M/F) 1.5-2.5 M-Mode Dimensions RVDd 1.68 cm (0.9-2.6) LVDd 1.12 cm (3.5-5.7) Ao Diam 3.47 cm (2.0-3.7) LVDs 4.27 cm (3.5-5.7) IVSd 1.03 cm (0.6-1.1) PWd 1.14 cm (0.6-1.1) EF (Teich) 53.70% EPSs 0.40 cm FS 28.20% EDV (Teich) 176.60 mL TAPSE 1.79 (<1.7) ESV (Teich) 81.70 mL LV Diastology E Decel Time 167 (160-240 msec) E/A Ratio 1.46 MED E' 6.5 (>= 7 cm/sec) MED A' 11.30 cm/s E'/MED E' Ratio 11.54 (<= 14) LAT E' 11.3 (>= 10 cm/sec) LAT A' 9.10 cm/s E/LAT E' Ratio 6.64 (<= 14) Aortic Valve LVOT Max 105.0 (70-110 cm/s) CHAD Index 1.43 cm2/m2 LVOT VTI 17.27 cm AoV Peak Magdi. 114.0 (50-130 cm/s) AO Mean GR. 2.60 (<5 mmHg) AO VTI 17.0 (18-25 cm) CHAD (VTI) 3.42 (2.5-4.5 cm2) Mitral Valve MV E Max Magdi. 75.0 (40-130 cm/s) MV A Velocity 51.0 (40-130 cm/s) E/A Ratio 1.46 MV Decel. Time 167 (160-240 ms) Pulmonary Valve OR End VMAX 198.0 cm/s Left Ventricle The left ventricle is normal size. The left ventricular systolic function is normal. The left ventricular ejection fraction is within the normal range. There is increased LV wall thickness. There is normal LV segmental wall motion. The left ventricular diastolic function is normal. LVEF is 55%. Right Ventricle Right ventricle is mildly dilated. Right ventricular systolic function is mildly reduced. Atria The left atrium size is normal. The right atrium size is normal. There is no Doppler evidence of interatrial shunt. Aortic Valve The aortic valve opens well. There is no aortic valvular stenosis. No aortic regurgitation is present. Mitral Valve The mitral valve is normal in structure. No evidence of mitral valve stenosis. Trace mitral valve regurgitation noted. Tricuspid Valve The tricuspid valve leaflets are thin and pliable. Trace tricuspid regurgitation. There is insufficient TR jet to estimate RVSP. Pulmonic Valve The pulmonary valve is normal in structure. Trace pulmonic regurgitation. Great Vessels The aortic root is normal in size. The ascending aorta is not well visualized. IVC is normal in size and collapses >50% with inspiration. Pericardium There is no pericardial effusion. Other Information Study Quality: Adequate Conclusion Normal LV systolic function. Mild RV dilation with mild reduction in RV systolic function. No significant valvular stenosis or regurgitation. Electronically signed by : Josephine Ross MD 10/11/2023 16:43:24
--- NOTE | 2023-10-11 15:30 | P.HP_ITS ---
History of Present Illness *Admission Date: 10/11/23 *Reason for visit:: chest pain *History of present illness: Mr. Bedoya is a 33-year-old male with history of obesity, otherwise no significant history. He presented to the ER with onset of chest pain last night. Somewhat better with rest, worse with exertion. Reports some shortness of breath. Also reports that over the past 2 to 3 days he has had nausea, vomiting, and diarrhea. States the pain is substernal. Denies any fever but has had some chills. No diarrhea since this morning. On arrival to the ER initial labs show troponin of 6.59. EKG had concerning findings. STEMI alert was called and patient was taken to the [facility] for further evaluation. Medicine consulted for admission. Arrival to the floor after heart cath, still having some intermittent chest pain. Patient stable on room air. Heart cath showed clean coronaries. Presentation concerning for myocarditis. Cardiac MRI, CTA of the chest, echo all pending. [facility] Disclaimer: The information contained in this section may have been updated after the patient was seen, as this information can be updated by other users. Medical History Hypertension Surgical History H/O umbilical hernia repair History of cholecystectomy Family History Family history of acute congestive heart failure Grandfather Grandmother Social History Smoking Status: Current every day smoker tobacco type: smokeless tobacco alcohol intake: current substance use type: denies use current occupational status: employed Travel in the last 8 weeks: None household members: significant other housing: house current occupation: [employer] current occupational exposures/hazards: No caffeine: Yes Review of Systems Review of Systems Review of systems (narrative): 14 point review of systems performed, pertinent positives and negatives as per HPI Meds Home Medications and Allergies Home Medications Medication Instructions Recorded Confirmed Type testosterone 100 mg/mL 500 mg IM DIRECTED Supplement 10/11/23 10/11/23 History intramuscular suspension New Prescriptions to Start Prescriptions: Allergies Allergy/AdvReac Type Severity Reaction Status Date / Time No Known Allergies Allergy Verified 08/24/20 14:26 Exam Data for Last 24 hours Vital signs and Labs for Last 24 Hours: Temp Pulse Resp BP Pulse Ox O2 Del Method O2 Flow Rate 97.9 F 112 H 19 128/75 95 Room Air 92 10/11/23 12:15 10/11/23 13:35 10/11/23 13:35 10/11/23 13:35 10/11/23 13:35 10/11/23 13:26 10/11/23 13:10 Laboratory Results - last 24 hr 10/11/23 11:20: WBC 6.4, RBC 6.06, Hgb 17.9, Hct 53.7 H, MCV 88.6, MCH 29.6, MCHC 33.4, RDW 13.7, Plt Count 198, MPV 7.6, Neut % (Auto) 71.0, Lymph % (Auto) 17.3, [place] % (Auto) 10.2 H, Eos % (Auto) 0.8, Baso % (Auto) 0.6, Neut # (Auto) 4.6, Lymph # (Auto) 1.1, [place] # (Auto) 0.7, Eos # (Auto) 0.1, Baso # (Auto) 0.0, ESR 3, Sodium 138, Potassium 4.0, Chloride 106, Carbon Dioxide 27, Anion Gap 9.0, BUN 10, Creatinine 1.00, Estimated Creat Clear 104, Estimated GFR 86, Est GFR ( Amer) 103, Glucose 118 H, Calcium 8.3 L, Total Bilirubin 0.4, AST 58, ALT 46, Alkaline Phosphatase 57, Troponin I 6.59 H, C-Reactive Protein 20.3 H, Total Protein 6.7, Albumin 4.0, Globulin 2.7, Albumin/Globulin Ratio 1.5, Lipase 108 I & O for Last 24 hours: Intake & Output 10/08/23 10/09/23 10/10/23 10/11/23 23:59 23:59 23:59 23:59 Weight 128.565 kg Constitutional Constitutional: no acute distress, morbidly obese and cooperative *Routine HEENT Exam Head: Present normocephalic Eye: Present EOMI and PERRL ENT: Present mucous membranes moist *Routine Neck Exam Neck: Present supple; Absent lymphadenopathy *Routine Respiratory Exam Respiratory: Present CTA bilaterally *Routine Cardiovascular Exam Cardiovascular: Present RRR; Absent murmur, gallop or rubs *Routine Abdominal Exam Abdominal: Present soft; Absent normoactive bowel sounds (hyperactive) or tenderness *Routine Rectal Exam Rectal:: deferred *Routine Genitalia Exam Genitalia:: deferred *Routine Extremities Exam Extremities: Absent cyanosis, clubbing or edema *Routine Skin Exam Skin: Present warm; Absent rash *Routine Neurological Exam Neurological: Present alert, oriented X3 and moving all extremities; Absent altered mental status Assessment and Plan *Assessment and plan (1) Myocarditis: Status: Acute Category: Medical Code(s): I51.4 - Myocarditis, unspecified (2) Class 3 obesity: Status: Acute Category: Medical Code(s): E66.01 - Morbid (severe) obesity due to excess calories (3) Gastroenteritis: Status: Acute Category: Medical Code(s): K52.9 - Noninfective gastroenteritis and colitis, unspecified Plan 33-year-old male with a recent GI illness, presents with chest pain. Workup in the ER concerning for STEMI. Taken to [facility] with clean coronaries. Discussed case with cardiology and ER physician, request admission for further management and treatment. Medicine agreed to admit. CTA of the chest, MRI of heart, echo obtained. Problems addressed as follows: Myocardial injury Myocarditis -On presentation to the ER, troponin 6.59, elevated to 11. Taken for left heart cath with clean coronaries. No ischemic disease. -Echocardiogram obtained showing preserved ejection fraction, mildly reduced right-sided function. Discussed case with cardiology, recommended CTA of the chest to rule out PE. CTA obtained showing no central PE. Patient is on testosterone which is a risk factor for pulmonary emboli and CAD. -MRI of the heart obtained with no significant signs of cardiac injury. -At this time we will treat empirically for myocarditis. Initiate colchicine 0.6 mg twice daily -Morphine for chest pain 4 mg IV as needed every 4 hours. Monitor for toxicity -Monitor overnight on telemetry. Further management pending response over the next 24 hours. -Will initiate beta-tomy given tachycardia. Metoprolol tartrate PO 12.5 mg BID -Comprehensive respiratory panel pending to evaluate for viral etiology of myocarditis Gastroenteritis -Diarrhea panel pending -Fiber supplement twice daily 625 mg p.o. twice daily -Initiate probiotic Morbid obesity complicates all aspects of care Full code Regular diet
[2023-10-11] MEDS: SODIUM CHLORIDE 0.9% 50ML BAG 25 ML IV (15:37)
[2023-10-11] MEDS: GADOTERIDOL INJ 17ML SYRINGE 28 ML IV (15:37)
[2023-10-11] MEDS: SODIUM CHLORIDE 0.9% 10ML SYR (RAD ONLY) 10 ML IV ×2 (15:37→16:55)
--- NOTE | 2023-10-11 15:45 | PC.NURSE ---
Pt went down to Cardiac MRI [id number] -1525. Post cath vitals not obtained at that time.
[2023-10-11] MEDS: IOPAMIDOL-370 (76%);100ML BOTTLE 50 ML IV (15:57)
[2023-10-11 16:12] LABS: CATHL Activated Clotting Time > 400 SEC (74-125)
[2023-10-11 16:18] LABS: Chol/HDL Ratio 6.2 (1-3.5); Cholesterol 106 mg/dl (140-200); HDL Cholesterol 17 mg/dl (40-60); Triglycerides 107 mg/dl (30-150); VLDL Cholesterol 21 mg/dL (0-40)
--- NOTE | 2023-10-11 16:24 | CT_ITS ---
PROCEDURE INFORMATION: Exam: CTA Chest With Contrast Exam date and time: 10/11/2023 4:38 PM Age: 33 years old Clinical indication: Pain; Chest pressure; Additional info: Possible pe TECHNIQUE: Imaging protocol: Computed tomographic angiography of the chest with contrast. Exam focused on the arteries. 3D rendering (Not supervised by radiologist): MIP and/or 3D reconstructed images were created by the technologist. Radiation optimization: All CT scans at this facility use at least one of these dose optimization techniques: automated exposure control; mA and/or kV adjustment per patient size (includes targeted exams where dose is matched to clinical indication); or iterative reconstruction. Contrast material: ISOVUE 370; Contrast volume: 100 ml; Contrast route: INTRAVENOUS (IV); REPORTING DATA: Count of CT and Cardiac NM exams in prior 12 months: This patient has received 0 known CTs and 0 known cardiac nuclear medicine studies in the 12 months prior to the current study. COMPARISON: 1. CR XR CHEST 2V 10/11/2023 3:[address] CHEST W/O CONTRAST 09/07/2017 6:46 PM 3. MR CARDIAC WO/W CON 10/11/2023 2:12 PM FINDINGS: Pulmonary arteries: There is fair opacification of the pulmonary arterial tree. No central pulmonary arterial filling defect is seen. Aorta: There is atherosclerotic disease of the visualized aorta and its major branch vessels. Other arteries: Subsegmental vessels are not well evaluated due to contrast timing. Lungs: Scattered areas of bronchial wall thickening which are likely chronic inflammatory. A few areas of subpleural reticulation are noted, nonspecific. There is patchy atelectasis at the lung bases. Pleural spaces: Unremarkable. No pneumothorax. No pleural effusion. Heart: Unremarkable. No cardiomegaly. No pericardial effusion. Lymph nodes: Unremarkable. No enlarged lymph nodes. Gallbladder and bile ducts: The patient is status post cholecystectomy. Bones/joints: There is diffuse degenerative disease of the visualized osseous structures. Soft tissues: There is bilateral gynecomastia. Other findings: Motion artifact mildly limits evaluation. IMPRESSION: 1. No central pulmonary arterial filling defect is seen. Subsegmental vessels are not well evaluated due to contrast timing. 2. No dense parenchymal consolidation, pleural effusion, or pneumothorax.
[2023-10-11 16:29] LABS: Direct LDL Cholesterol 81.05 mg/dL (100-129)
[2023-10-11] MEDS: 0.9 % SODIUM CHLORIDE 50 ML VIAL IV (16:55)
[2023-10-11] MEDS: IOPAMIDOL-370 (76%);100ML BOTTLE 100 ML IV (16:55)
[2023-10-11] MEDS: BELLADONNA ALKALOIDS 60 ML ML PO (17:31)
[2023-10-11 17:50] LABS: Adenovirus,PCR Not Detected (NotDetected); Coronavirus 19, PCR Not Detected (NotDetected); Coronavirus 229E Not Detected (NotDetected); Coronavirus NL63 Not Detected (NotDetected); Coronavirus OC43 Not Detected (NotDetected); Coronovirus HKU1,PCR Not Detected (NotDetected); Human Metapneumovirus Not Detected (NotDetected); Influenza A, PCR Not Detected (NotDetected); Influenza AH1, 2009 Not Detected (NotDetected); Influenza AH1, PCR Not Detected (NotDetected); Influenza AH3,PCR Not Detected (NotDetected); Influenza B, PCR Not Detected (NotDetected); Parainfluenza 1, PCR Not Detected (NotDetected); Parainfluenza 2, PCR Not Detected (NotDetected); Parainfluenza 3, PCR Not Detected (NotDetected); Parainfluenza 4, PCR Not Detected (NotDetected); Respiratory Syncytial Virus Not Detected (NotDetected); Rhinovirus/Enterovirus Not Detected (NotDetected)
[2023-10-11] MEDS: COLCHICINE 0.6MG TABLET 0.599999999999999978 MG PO (17:58)
--- NOTE | 2023-10-11 18:16 | PC.NURSE ---
Pt resting in bed. Has ate dinner. C/O chest discomfort, pressure. MD notified. New orders received and carried out. Pt is tachycardic. MD aware. He is currently resting in bed. BP stable. Pt remains on RA. Cardiac cath site. (R) radial with DSG in place is C/D/I. No hematoma or drainage noted. Call light within reach.
[2023-10-11] MEDS: MORPHINE 4MG/ML SYRINGE 4 MG IV ×2 (18:57→22:47)
[2023-10-11] MEDS: NITROGLYCERIN 0.4MG SL TABLET 0.400000000000000022 MG SL (19:25)
[2023-10-11] MEDS: KETOROLAC 30MG/ML VIAL 15 MG IV (19:38)
--- NOTE | 2023-10-11 19:40 | PC.NURSE ---
patient has c/o CP during shift change. Melita barkley contacted ella. patient was administered morphine, nitropaste, and toradol per DEC. patient was placed on 2L NC. CP decreased from 9 to 7, patient states it feels like pressure. VSS
[2023-10-11] MEDS: CALCIUM POLYCARBOPHIL 625MG TAB 625 MG PO (20:40)
[2023-10-11] MEDS: METOPROLOL TARTRATE 25MG TABLET 12.5 MG PO (20:40)
--- NOTE | 2023-10-11 22:55 | PC.NURSE ---
pt c/o CP, denies SOA. tx with morphine per DEC. post assess pt was asleep.
[2023-10-12] VITALS: BP 126/74; PULSE 101; PULSE 102; RESP 18; TEMP 36.8; O2SAT 96
[2023-10-12] MEDS: MORPHINE 4MG/ML SYRINGE 4 MG IV (03:00)
--- NOTE | 2023-10-12 03:15 | PC.NURSE ---
pt c/o CP, denies SOA. tx with morphine per DEC. post assess pt was asleep.
[2023-10-12 04:00] VITALS: BP 125/78; PULSE 90; PULSE 92; RESP 18; TEMP 36.6; O2SAT 95; BMI 42.6
[2023-10-12 06:54] LABS: Chloride 103 mmol/L (98-107)
[2023-10-12 06:55] LABS: Basophils % 0.4 % (0.1-2.0); Eosinophils # 0.1 K/mm3 (0.0-0.4); Eosinophils % 0.6 % (0.1-12.0); Hematocrit 50.3 % (42.0-52.0); Hemoglobin 16.7 g/dL (14.1-18.0); Lymphocytes # 2.3 K/mm3 (0.7-4.5); Lymphocytes % 20.6 % (10-50); Mean Corpuscular HGB Conc 33.2 g/dL (31.8-35.4); Mean Corpuscular Hemoglobin 29.1 pg (27.0-31.2); Mean Corpuscular Volume 87.6 fl (80-94); Mean Platelet Volume 7.4 fl (7.4-10.4); Monocytes # 1.3 K/mm3 (0.1-1.0); Monocytes % 12.3 % (1.7-9.3); Neutrophils # 7.2 K/mm3 (1.8-7.8); Neutrophils % 66.1 % (37.0-80.0); Platelet Count 197 K/mm3 (142-424); Red Blood Count 5.74 M/mm3 (4.60-6.20); Red Cell Distribution Width 13.6 % (11.5-17.5); Sodium 134 mmol/L (136-145); White Blood Count 10.9 K/mm3 (4.8-10.8)
[2023-10-12 06:57] LABS: Alanine Aminotransferase 37 U/L (12-78); Alkaline Phosphatase 58 U/L (38-126); Aspartate Amino Transferase 51 U/L (17-59); Bilirubin,Total 0.4 mg/dl (0.2-1.3); Blood Urea Nitrogen 7 mg/dl (9-20); Carbon Dioxide 27 mmol/L (22.0-30.0); Creatinine Clearance Estimated 101 mL/min (50-200); Estimated Glomerular Filt Rate 86 ml/min (>60); GFR (African American) 103 ML/MIN (>60)
[2023-10-12 06:58] LABS: Albumin Level 3.5 g/dl (3.5-5.0); Albumin/Globulin Ratio 1.3 (1.1-1.8); Calcium 8.1 mg/dl (8.4-10.2); Globulin 2.6 g/dL (1.3-3.2); Glucose 94 mg/dl (74-100); Magnesium 2.1 mg/dl (1.6-2.3); Total Protein,Serum 6.1 g/dl (6.3-8.2)
--- NOTE | 2023-10-12 07:38 | EXP.DC.SUM ---
General Admission date:: 10/11/23 Discharge date: 10/12/23 HPI HPI HPI: Mr. Juan is a 33-year-old male with history of obesity, otherwise no significant history. He presented to the ER with onset of chest pain last night. Somewhat better with rest, worse with exertion. Reports some shortness of breath. Also reports that over the past 2 to 3 days he has had nausea, vomiting, and diarrhea. States the pain is substernal. Denies any fever but has had some chills. No diarrhea since this morning. On arrival to the ER initial labs show troponin of 6.59. EKG had concerning findings. STEMI alert was called and patient was taken to the [facility] for further evaluation. Medicine consulted for admission. Arrival to the floor after heart cath, still having some intermittent chest pain. Patient stable on room air. Heart cath showed clean coronaries. Presentation concerning for myocarditis. Cardiac MRI, CTA of the chest, echo all pending. Hospital Course Hospital Course Hospital Course: 33-year-old male with a recent GI illness, presents with chest pain. Workup in the ER concerning for STEMI. Taken to [facility] with clean coronaries. Discussed case with cardiology and ER physician, request admission for further management and treatment. Medicine agreed to admit. CTA of the chest, MRI of heart, echo obtained. Problems addressed as follows: Myocardial injury Myocarditis -On presentation to the ER, troponin 6.59, elevated to 11. Taken for left heart cath with clean coronaries. No ischemic disease. Echocardiogram obtained showing preserved ejection fraction, mildly reduced right-sided function. Discussed case with cardiology, recommended CTA of the chest to rule out PE. CTA obtained showing no central PE. Patient is on testosterone which is a risk factor for pulmonary emboli and CAD. Recommended he hold testosterone for the time being until follows up with cardiology. MRI of the heart obtained with no significant signs of cardiac injury. Formal read still pending at time of discharge. At this time we will treat empirically for myocarditis. Initiated colchicine 0.6 mg twice daily. Required morphine over the first night of admission. Responding well to hydrocodone morning of discharge. Been stable on telemetry. Given normal heart function, improvement in pain, extent of workup, stable for discharge home. Will initiate beta-tomy given tachycardia. Metoprolol tartrate PO 12.5 mg BID. Comprehensive respiratory panel pending to evaluate for viral etiology of myocarditis Gastroenteritis: Patient had no further bowel movements during admission. Continue fiber supplement if continues to have diarrhea when he gets home. Probiotic administered during hospitalization. Multiple discussions with patient today, has done well with colchicine and hydrocodone for pain control. Hemodynamically stable. Meeting discharge criteria at home. Spent 30 minutes in discharge counseling, documentation, chart review, and direct care with patient. Exam Data for Last 24 hours Vital signs and Labs for Last 24 Hours: Temp Pulse Resp BP Pulse Ox O2 Del Method O2 Flow Rate 97.9 F 92 H 18 125/78 95 Nasal Cannula 2 10/12/23 04:00 10/12/23 04:00 10/12/23 04:00 10/12/23 04:00 10/12/23 04:00 10/12/23 06:25 10/12/23 06:25 Laboratory Results - last 24 hr 10/11/23 11:20: WBC 6.4, RBC 6.06, Hgb 17.9, Hct 53.7 H, MCV 88.6, MCH 29.6, MCHC 33.4, RDW 13.7, Plt Count 198, MPV 7.6, Neut % (Auto) 71.0, Lymph % (Auto) 17.3, [place] % (Auto) 10.2 H, Eos % (Auto) 0.8, Baso % (Auto) 0.6, Neut # (Auto) 4.6, Lymph # (Auto) 1.1, [place] # (Auto) 0.7, Eos # (Auto) 0.1, Baso # (Auto) 0.0, ESR 3, Sodium 138, Potassium 4.0, Chloride 106, Carbon Dioxide 27, Anion Gap 9.0, BUN 10, Creatinine 1.00, Estimated Creat Clear 104, Estimated GFR 86, Est GFR ( Amer) 103, Glucose 118 H, Calcium 8.3 L, Total Bilirubin 0.4, AST 58, ALT 46, Alkaline Phosphatase 57, Troponin I 6.59 H, C-Reactive Protein 20.3 H, Total Protein 6.7, Albumin 4.0, Globulin 2.7, Albumin/Globulin Ratio 1.5, Lipase 108 10/11/23 13:40: Activated Clotting Time > 400 H* 10/11/23 15:44: Troponin I 11.30 H, Triglycerides 107, Cholesterol 106 L, LDL Cholesterol Direct 81.05 L, VLDL Cholesterol 21, HDL Cholesterol 17 L, Cholesterol/HDL Ratio 6.2 H 10/11/23 17:42: Chlamy pneumoniae PCR TNP, Adenovirus (PCR) Not detected, B. pertussis DNA (PCR) TNP, Coronavirus OC43 (PCR) Not detected, Coronavirus HKU1 (PCR) Not detected, Coronavirus 229E (PCR) Not detected, SARS-CoV-2 (PCR) Not detected, Coronavirus NL63 (PCR) Not detected, Human Metapneumovir PCR Not detected, Influenza A (H1) PCR Not detected, Influ A (H1N1/09) PCR Not detected, Influenza A (H3) PCR Not detected, Influenza Type A (PCR) Not detected, Influenza Type B (PCR) Not detected, M. pneumoniae (PCR) TNP, Parainfluenza 1 (PCR) Not detected, Parainfluenza 2 (PCR) Not detected, Parainfluenza 3 (PCR) Not detected, Parainfluenza 4 (PCR) Not detected, RSV (PCR) Not detected, Entero/Rhino (PCR) Not detected 10/12/23 06:18: WBC 10.9 H D, RBC 5.74, Hgb 16.7, Hct 50.3, MCV 87.6, MCH 29.1, MCHC 33.2, RDW 13.6, Plt Count 197, MPV 7.4, Neut % (Auto) 66.1, Lymph % (Auto) 20.6, [place] % (Auto) 12.3 H, Eos % (Auto) 0.6, Baso % (Auto) 0.4, Neut # (Auto) 7.2, Lymph # (Auto) 2.3, [place] # (Auto) 1.3 H, Eos # (Auto) 0.1, Baso # (Auto) 0.0, Sodium 134 L, Potassium 4.0, Chloride 103, Carbon Dioxide 27, Anion Gap 8.0, BUN 7 L D, Creatinine 1.00, Estimated Creat Clear 101, Estimated GFR 86, Est GFR ( Amer) 103, Glucose 94 D, Calcium 8.1 L, Magnesium 2.1, Total Bilirubin 0.4, AST 51, ALT 37, Alkaline Phosphatase 58, Total Protein 6.1 L, Albumin 3.5 D, Globulin 2.6, Albumin/Globulin Ratio 1.3 I & O for Last 24 hours: Intake & Output 10/09/23 10/10/23 10/11/23 10/12/23 23:59 23:59 23:59 23:59 Intake Total 240 / 270 Output Total 0 / 0 0 / 0 Balance 270 Weight 128.565 kg 130.691 kg Constitutional Constitutional: no acute distress and morbidly obese *Routine HEENT Exam Head: Present normocephalic Eye: Present EOMI and PERRL ENT: Present mucous membranes moist *Routine Neck Exam Neck: Present supple; Absent lymphadenopathy *Routine Respiratory Exam Respiratory: Present CTA bilaterally *Routine Cardiovascular Exam Cardiovascular: Present RRR *Routine Abdominal Exam Abdominal: Present soft and normoactive bowel sounds; Absent tenderness *Routine Extremities Exam Extremities: Absent cyanosis, clubbing or edema *Routine Skin Exam Skin: Present warm; Absent rash *Routine Neurological Exam Neurological: Present alert, oriented X3 and moving all extremities; Absent altered mental status Routine Psychiatric Exam Psychiatric: Present normal affect and normal thought process Results Data Completed and Pending Labs on day of discharge: Labs from last 24 hours 10/12/23 10/11/23 10/11/23 06:18 17:42 15:44 WBC 10.9 H D RBC 5.74 Hgb 16.7 Hct 50.3 MCV 87.6 MCH 29.1 MCHC 33.2 RDW 13.6 Plt Count 197 MPV 7.4 Neut % (Auto) 66.1 Lymph % (Auto) 20.6 [place] % (Auto) 12.3 H Eos % (Auto) 0.6 Baso % (Auto) 0.4 Neut # (Auto) 7.2 Lymph # (Auto) 2.3 [place] # (Auto) 1.3 H Eos # (Auto) 0.1 Baso # (Auto) 0.0 ESR Activated Clotting Time Sodium 134 L Potassium 4.0 Chloride 103 Carbon Dioxide 27 Anion Gap 8.0 BUN 7 L D Creatinine 1.00 Estimated Creat Clear 101 Estimated GFR 86 Est GFR ( Amer) 103 Glucose 94 D Calcium 8.1 L Magnesium 2.1 Total Bilirubin 0.4 AST 51 ALT 37 Alkaline Phosphatase 58 Troponin I 11.30 H C-Reactive Protein Total Protein 6.1 L Albumin 3.5 D Globulin 2.6 Albumin/Globulin Ratio 1.3 Triglycerides 107 Cholesterol 106 L LDL Cholesterol Direct 81.05 L VLDL Cholesterol 21 HDL Cholesterol 17 L Cholesterol/HDL Ratio 6.2 H Lipase Chlamy pneumoniae PCR TNP Adenovirus (PCR) Not detected B. pertussis DNA (PCR) TNP Coronavirus OC43 (PCR) Not detected Coronavirus HKU1 (PCR) Not detected Coronavirus 229E (PCR) Not detected SARS-CoV-2 (PCR) Not detected Coronavirus NL63 (PCR) Not detected Human Metapneumovir PCR Not detected Influenza A (H1) PCR Not detected Influ A (H1N1/09) PCR Not detected Influenza A (H3) PCR Not detected Influenza Type A (PCR) Not detected Influenza Type B (PCR) Not detected M. pneumoniae (PCR) TNP Parainfluenza 1 (PCR) Not detected Parainfluenza 2 (PCR) Not detected Parainfluenza 3 (PCR) Not detected Parainfluenza 4 (PCR) Not detected RSV (PCR) Not detected Entero/Rhino (PCR) Not detected 10/11/23 10/11/23 13:40 11:20 WBC 6.4 RBC 6.06 Hgb 17.9 Hct 53.7 H MCV 88.6 MCH 29.6 MCHC 33.4 RDW 13.7 Plt Count 198 MPV 7.6 Neut % (Auto) 71.0 Lymph % (Auto) 17.3 [place] % (Auto) 10.2 H Eos % (Auto) 0.8 Baso % (Auto) 0.6 Neut # (Auto) 4.6 Lymph # (Auto) 1.1 [place] # (Auto) 0.7 Eos # (Auto) 0.1 Baso # (Auto) 0.0 ESR 3 Activated Clotting Time > 400 H* Sodium 138 Potassium 4.0 Chloride 106 Carbon Dioxide 27 Anion Gap 9.0 BUN 10 Creatinine 1.00 Estimated Creat Clear 104 Estimated GFR 86 Est GFR ( Amer) 103 Glucose 118 H Calcium 8.3 L Magnesium Total Bilirubin 0.4 AST 58 ALT 46 Alkaline Phosphatase 57 Troponin I 6.59 H C-Reactive Protein 20.3 H Total Protein 6.7 Albumin 4.0 Globulin 2.7 Albumin/Globulin Ratio 1.5 Triglycerides Cholesterol LDL Cholesterol Direct VLDL Cholesterol HDL Cholesterol Cholesterol/HDL Ratio Lipase 108 Chlamy pneumoniae PCR Adenovirus (PCR) B. pertussis DNA (PCR) Coronavirus OC43 (PCR) Coronavirus HKU1 (PCR) Coronavirus 229E (PCR) SARS-CoV-2 (PCR) Coronavirus NL63 (PCR) Human Metapneumovir PCR Influenza A (H1) PCR Influ A (H1N1/09) PCR Influenza A (H3) PCR Influenza Type A (PCR) Influenza Type B (PCR) M. pneumoniae (PCR) Parainfluenza 1 (PCR) Parainfluenza 2 (PCR) Parainfluenza 3 (PCR) Parainfluenza 4 (PCR) RSV (PCR) Entero/Rhino (PCR) DS: Diagnosis Discharge Diagnosis (1) Myocarditis: Status: Acute Code(s): I51.4 - Myocarditis, unspecified (2) Class 3 obesity: Status: Acute Code(s): E66.01 - Morbid (severe) obesity due to excess calories (3) Gastroenteritis: Status: Acute Code(s): K52.9 - Noninfective gastroenteritis and colitis, unspecified Meds Home Medications and Allergies Home Medications Medication Instructions Recorded Confirmed Type testosterone 100 mg/mL 500 mg IM DIRECTED Supplement 10/11/23 10/11/23 History intramuscular suspension calcium polycarbophil 625 mg 625 mg PO BID PRN Diarrhea #0 tabs 10/12/23 Rx tablet (FiberCon) colchicine 0.6 mg tablet (Colcrys) 0.6 mg PO BID 30 days #60 tabs 10/12/23 Rx hydrocodone 5 mg-acetaminophen 325 1 tab PO Q6HP PRN Severe Pain 10/12/23 Rx mg tablet (7-10) 3 days #12 tabs metoprolol tartrate 25 mg tablet 12.5 mg PO BID 30 days #30 tabs 10/12/23 Rx New Prescriptions to Start Prescriptions: colchicine [Colcrys] Charles Lopez hydrocodone-acetaminophen Charles Lopez metoprolol tartrate Charles Lopez Allergies Allergy/AdvReac Type Severity Reaction Status Date / Time No Known Allergies Allergy Verified 08/24/20 14:26 Discharge Plan Disposition Patient Disposition: Home, Self-Care Condition: Fair Discharge Order Discharge Orders: Discharge Order (Routine); Ordered 10/12/23 Ordered By: Charles Lopez Follow up Plan Follow up with: Fuad Wade MD [Staff Physician] - 10/16/23 11:00 am Bertin Goins MD [Primary Care Provider] - 10/21/23 11:30 am Prescriptions/Medication Reconciliation: New hydrocodone-acetaminophen 5-325 mg Tablet 1 tab PO Q6HP PRN (Reason: Severe Pain (7-10)) 3 Days Qty: 12 0RF calcium polycarbophil [FiberCon] 625 mg Tablet 625 mg PO BID PRN (Reason: Diarrhea) Qty: 0 0RF colchicine [Colcrys] 0.6 mg Tablet 0.6 mg PO BID 30 Days Qty: 60 0RF metoprolol tartrate 25 mg Tablet 12.5 mg PO BID 30 Days Qty: 30 0RF Held testosterone 100 mg/mL Suspension 500 mg IM DIRECTED Hold Instructions: pending follow-up with Cardiology Problem Reconciliation Problems Reviewed?: Yes Patient Discharge Instructions ACTIVITY: Ambulate as tolerated and No heavy lifting DIET: continue same diet Patient Instructions: Cardiac Catheterization, DI for Cardiac Catheterization, DI for Myocarditis, DI for Surgical Site Infection, Surgical Site Infection Providers Primary Care Provider: Bertin Goins Admit Provider: Charles Lopez Attending Provider: Charles Lopez
[2023-10-12 08:00] VITALS: BP 112/70; PULSE 82; PULSE 90; RESP 18; TEMP 36.5; O2SAT 96
[2023-10-12] MEDS: CALCIUM POLYCARBOPHIL 625MG TAB 625 MG PO (08:37)
[2023-10-12] MEDS: LACTOBACILLUS PROBIOTIC COMB CAPSULE 1 CAP PO (08:37)
[2023-10-12] MEDS: METOPROLOL TARTRATE 25MG TABLET 12.5 MG PO (08:37)
[2023-10-12] MEDS: COLCHICINE 0.6MG TABLET 0.599999999999999978 MG PO (08:37)
[2023-10-12] MEDS: HYDROCODONE/APAP 5/325 MG TABLET 1 TAB PO (10:14)
[2023-10-12 12:00] VITALS: BP 117/64; PULSE 80; PULSE 83; RESP 18; TEMP 36.6; O2SAT 98
== END 2023-10-12 13:32 | disposition home or self-care (01) ==
LOC: ER 12:15 → CATHLAB 12:25 → 2ND 13:31
PROVIDERS: Internal Medicine; Admitting Provider Internal Medicine Adolescent Medicine; Emergency Provider Emergency Medicine; PCP Internal Medicine Adolescent Medicine; Visit Provider Internal Medicine Adolescent Medicine
DX: I51.4 Myocarditis, unspecified (principal); K52.9 Noninfective gastroenteritis and colitis, unspecified; E66.01 Morbid (severe) obesity due to excess calories; Z68.41 Body mass index [BMI] 40.0-44.9, adult
CPT/HCPCS: 36415; 71046; 71275; 75561; 80053; 80061; 83690; 83735; 84484; 85025; 85347; 85651; 86140; 87632; 87635; 93005; 93306; 93458; 99152; 99153; 99285; A9576; C1725; C1760; C1769; G0378; J1644; J2405; Q9967

== ENCOUNTER 2023-10-16 14:26 | Outpatient (CLI) | payer BC, SELFPAY ==
[2023-10-16 15:03] LABS: Basophils # 0.1 K/mm3 (0-0.2); Basophils % 0.8 % (0.1-2.0); Eosinophils # 0.1 K/mm3 (0.0-0.4); Eosinophils % 1.6 % (0.1-12.0); Hematocrit 54.5 % (42.0-52.0); Lymphocytes # 2.4 K/mm3 (0.7-4.5); Lymphocytes % 31.3 % (10-50); Mean Corpuscular HGB Conc 34.1 g/dL (31.8-35.4); Mean Corpuscular Hemoglobin 29.7 pg (27.0-31.2); Mean Corpuscular Volume 87.1 fl (80-94); Mean Platelet Volume 7.9 fl (7.4-10.4); Monocytes # 0.6 K/mm3 (0.1-1.0); Monocytes % 7.3 % (1.7-9.3); Neutrophils # 4.5 K/mm3 (1.8-7.8); Platelet Count 308 K/mm3 (142-424); Red Blood Count 6.25 M/mm3 (4.60-6.20); Red Cell Distribution Width 13.5 % (11.5-17.5); White Blood Count 7.6 K/mm3 (4.8-10.8)
[2023-10-16 15:15] LABS: Hemoglobin 18.6 g/dL (14.1-18.0)
[2023-10-16 16:10] LABS: Alanine Aminotransferase 57 U/L (12-78); Albumin Level 4.1 g/dl (3.5-5.0); Alkaline Phosphatase 60 U/L (38-126); Anion Gap 10.2 mEq/L (5-15); Aspartate Amino Transferase 35 U/L (17-59); Bilirubin,Direct 0.1 mg/dl (0.0-0.4); Bilirubin,Indirect 0.3 mg/dL (0.0-0.9); Bilirubin,Total 0.4 mg/dl (0.2-1.3); Bilirubin,Unconjugated 0.3 mg/dL (0.0-1.1); Blood Urea Nitrogen 9 mg/dl (9-20); Calcium 8.9 mg/dl (8.4-10.2); Carbon Dioxide 29 mmol/L (22.0-30.0); Chloride 103 mmol/L (98-107); Chol/HDL Ratio 7.1 (1-3.5); Cholesterol 141 mg/dl (140-200); Estimated Glomerular Filt Rate 97 ml/min (>60); GFR (African American) 117 ML/MIN (>60); Glucose 73 mg/dl (74-100); HDL Cholesterol 20 mg/dl (40-60); Potassium 4.2 mmoL/L (3.5-5.1); Sodium 138 mmol/L (136-145); Total Protein,Serum 6.6 g/dl (6.3-8.2); Triglycerides 117 mg/dl (30-150); VLDL Cholesterol 23 mg/dL (0-40)
[2023-10-16 16:18] LABS: Free T4 (Free Thyroxine) 0.89 ng/dl (0.78-2.19)
[2023-10-16 16:21] LABS: Direct LDL Cholesterol 110.78 mg/dL (100-129)
[2023-10-16 16:47] LABS: Troponin I 0.06 ng/ml (0.00-0.034)
[2023-10-16 17:06] LABS: Thyroid Stimulating Hormone 0.94 uIU/mL (0.465-4.68)
== END 2023-10-16 23:59 ==
LOC: LAB 14:27
PROVIDERS: PCP Internal Medicine Adolescent Medicine; Visit Provider Internal Medicine
DX: I51.4 Myocarditis, unspecified (principal); G47.33 Obstructive sleep apnea (adult) (pediatric); E66.01 Morbid (severe) obesity due to excess calories; Z68.41 Body mass index [BMI] 40.0-44.9, adult
CPT/HCPCS: 36415; 80048; 80061; 80076; 83735; 84439; 84443; 84484; 85025

== ENCOUNTER 2023-11-28 10:01 | Outpatient (CLI) | payer BC, SELFPAY ==
[2023-11-28 19:10] LABS: Iron 139 ug/dL (49-181)
[2023-11-28 19:21] LABS: Total Iron Binding Capacity 341 ug/dL (261-462)
[2023-11-28 19:47] LABS: Ferritin 122 ng/ml (17.9-464)
== END 2023-11-28 23:59 ==
LOC: LAB 10:02
PROVIDERS: PCP Internal Medicine Adolescent Medicine; Visit Provider Nurse Practitioner Family
DX: E83.10 Disorder of iron metabolism, unspecified (principal); G25.81 Restless legs syndrome
CPT/HCPCS: 36415; 82728; 83540; 83550

== ENCOUNTER 2024-03-19 11:01 | Outpatient (CLI) | payer BC, SELFPAY ==
--- NOTE | 2024-03-19 11:01 | CA_ITS ---
APPROVED REPORT EXAM: Limited 2D Echocardiogram Telegraph Mechanic: Alejandrina Castillo RVT Ht: 5 ft 9 in Wt: 292lbs BSA: 2.43 BP: 120/86 mmHg Indications: DYSPENA,EF CHECK,MYOCARDITIS HX M-Mode Dimensions RVDd 2.67 cm (0.9-2.6) LA Diam 3.92 cm (1.9-4.0) LVDd 5.00 cm (3.5-5.7) LVDs 3.01 cm (3.5-5.7) IVSd 0.85 cm (0.6-1.1) PWd 0.59 cm (0.6-1.1) EF (Teich) 70.10% FS 39.80% EDV (Teich) 118.20 mL ESV (Teich) 35.30 mL Other Information Study Quality: Fair Conclusion This is a limited TTE to evaluate for LVEF in the setting of prior myocarditis. Limited windows were obtained. The left ventricle is normal in size. There is increased LV wall thickness. There is normal LV systolic function. No regional wall motion abnormalities are noted. LVEF is 60%. The right ventricle is mildly dilated with mild reduction in RV function. Electronically signed by : Josephine Ross MD 03/21/2024 01:29:23
== END 2024-03-19 23:59 | disposition home or self-care (01) ==
LOC: RT 11:01
PROVIDERS: PCP Internal Medicine Adolescent Medicine; Visit Provider Internal Medicine
DX: I51.4 Myocarditis, unspecified (principal); E66.01 Morbid (severe) obesity due to excess calories; Z68.41 Body mass index [BMI] 40.0-44.9, adult; G47.33 Obstructive sleep apnea (adult) (pediatric); R06.00 Dyspnea, unspecified
CPT/HCPCS: 93308

== ENCOUNTER 2025-07-20 18:43 | Emergency (ER) | payer BC, SELFPAY ==
[2025-07-20 18:46] VITALS: BP 177/103; PULSE 86; RESP 18; TEMP 36.8; O2SAT 100; BMI 38.5
--- OUTSIDE RECORDS SUMMARY | 2025-07-20 18:56 | XMS_ITS | Clinical Summary ---
Author Organization [facility] Address [address] [place], [place] [id number] Care Team Providers Care Quality Assurance Advisor Name Role Phone Pcp, No Primary Care Provider Unavailabl e Allergies No known active allergies Medications No known medications Social History Tobacco Use Types Packs/Day Years Used Date Smoking Tobacco: Never Smokeless Tobacco: Current Tobacco Cessation:Ready to Q uit: No Alcohol Use Standard Drinks/Week Comments Yes 6 (1 standard drink = 0.6 oz pur e alcohol) PHQ-2 Answer Date Recorded Patient Health Questionnaire-2 Score 0 04/09/2023 PHQ-2A Answer Date Recorded Patient Health Questionnaire-2 Score 0 04/09/2023 Sex and Gender Information Value Date Recorded Sex Assigned at Male 04/03/2023 10:15 AM EDT Legal Sex Male 7:41 PM EDT Gender Identity Male 04/03/2023 10:15 AM EDT Sexual Orientation Not on file Last Filed Vital Signs Vital Sign Reading Time Taken Comments Blood Pressure 131/83 04/09/2023 8:39 AM EDT Pulse 89 04/09/2023 8:39 AM EDT Temperature 36.6 C (97.8 F) 04/03/2023 11:12 AM EDT Respiratory Rate 18 04/03/2023 11:12 AM EDT Oxygen Saturation 95% 04/03/2023 11:12 AM EDT Inhaled Oxygen Concentration - - Weight 133 kg (292 lb 8.8 oz) 04/09/2023 8:39 AM EDT Height 175.3 cm (5' 9 ) 04/09/2023 8:39 AM EDT Body Mass Index 43.2 04/09/2023 8:39 AM EDT Plan of Treatment Health Maintenance Due Date Last Done Comments [facility]-HIV Screening 1989 [facility]-Hepatitis C Screening 1989 [facility]-/Child/Adol SDOH Screenings 1989 [facility]-Varicella Vaccines (1 of 2 - 13+ 2-dose series) 2002 [facility]-DTaP,Tdap,and Td Vaccine s (2 - Tdap) 04/03/2003 04/02/2003 [facility]- SDOH Screenings 2007 [facility]-Adult SDOH Screenings 2007 HPV Vaccines (1 - 3-dose SCD M series) 2016 [facility]-Depression Screening 04/09/2024 04/09/2023 [id number] Vaccine (1 - 2023- season) 2025 [facility]-Influenza Vaccine (#1) 2025 [facility]-Zoster Vaccines (1 of 2) 2039 [facility]-Hepatitis B Vaccines Completed 001, 12/23/2000, 11/15/2000 [facility]-Obesity Intervention Completed 04/09/2023 [facility]-HIB Vaccines Aged Out No longer e ligible based on patient's age to complete this topic [facility]-Hepatitis A Vaccines Aged Out No longer eligible based on patient's age to complete this topic [facility]-IPV Vaccines Aged Out No longer e ligible based on patient's age to complete this topic [facility]-Pneumococcal Vaccine: Pediatrics (0 to 5 Years) and At-Risk Patients (6 to 49 Years) Aged Out No longer eligible b ased on patient's age to complete this topic [facility]-Rotavirus Vaccines Aged Out No lo nger eligible based on patient's age to complete this topic Insurance [employer] Care Teams Quality Assurance Advisor Relationship Specialty Start Date End Date Pcp, [place] [address] PCP - General Family Medicine 04/03/23
--- NOTE | 2025-07-20 19:01 | ED_ITS ---
<Statement entered by Karlos Posada MD - 07/21/25 02:24> I was consulted by the MICHELL, and we discussed the complexity of the problems being addressed. I approve the treatment and management plan for this patient's care in the emergency department, thus performing a substantive portion of the medical decision making. Karlos Posada MD Discharge Plan Disposition Chief Complaint: Extremity Injury, Lower Prescriptions Prescriptions: No Action Zepbound 2.5 mg/0.5 mL pen injector 2.5 mg SQ WEEKLY 28 Days Qty: 2 0RF metoprolol tartrate 25 mg tablet 25 mg PO BID Qty: 60 3RF Referrals Follow up/Referrals: Bertin Goins MD [Primary Care Provider, Internal Medicine] - See instructions Print Language Print Language: [place] Discharge ED Provider: Karlos Posada General Adult HPI General Chief complaint: Extremity Injury, Lower Stated complaint: right knee, painful and swollen Time Seen by Provider: 07/20/25 19:01 Mode of Arrival: Ambulatory Source of Information: Patient Description of Symptoms (Recalled from ER Triage Doc. by RN): yadi presents to the ED for a right knee injury. patient stated he was playing alot of softball on saturday and felt as if he just pulled a hamstring muscle, but the pain has progressively gotten worse since then. History of Present Illness HPI narrative: This is a 35-year-old male presenting to the emergency department today for evaluation of a right leg injury. 3 days ago patient had a softball tournament. During the third game he reports developing pain in the right quadricep region. Patient felt he may be pulled a muscle. Over the weekend patient took ibuprofen and used a heating pad. Pain has continued to worsen. Patient reports pain is now starting to affect his upper knee. Patient reports pain is better when he is moving around. Once he sits and is still, he feels like he has stiffness and more difficulty with movement. He has not taken any medications today. He is still bearing weight on the extremity. No redness or fevers. He has never injured this extremity in the past. Related Data Previous Rx's ?Medication ?Instructions ?Recorded tirzepatide (weight loss) 2.5 2.5 mg (0.5 mL) SQ WEEKL Y 4 weeks 04/01/24 mg/0.5 mL subcutaneous pen #2 mL injector (Zepbound) metoprolol tartrate 25 mg tablet 25 mg PO BID #60 tabs 10/08/24 Allergies Allergy/AdvReac Type Severity Reaction Status Date / Time No Known Allergies Allergy Verified 05/19/24 12:54 [facility] Disclaimer: The information contained in this section may have been updated after the pat ient was seen, as this information can be updated by other users. Medical History Hypertension Ureteral calculus Cholecystitis with cholelithiasis Surgical History H/O umbilical hernia repair History of cholecystectomy Family History Grandfather Family history of acute congestive heart failure Grandmother Family history of acute congestive heart failure Social History Smoking Status: Never smoker alcohol intake: current alcohol intake frequency: a few times a month substance use type: denies use current occupational status: employed Travel in the last 8 weeks?: None household members: significant other housing: house current occupation: [employer] current occupational exposures/hazards: No caffeine: Yes Have you lived/traveled outside US in past 30 days?: No Contact w/someone who lives/traveled outside US past 30 days?: No Exposure to someone with infectious disease in past 14 days?: No Do you have a fever (greater than 100.4 F or 38 C)?: No Have you tested positive for COVID-19?: No Exposed to someone with COVID-19 in past 14 days?: No Do you have a sore throat?: No Do you have a cough?: No Do you have any weakness?: No Do you have any diarrhea?: No Are you experiencing any unusual bleeding?: No Do you have any muscle aches/pain?: No Do you have any abdominal pain?: No Are you experiencing loss of taste or smell?: No Other Medical History Have you received the Flu Vaccine for this season: No Have you received the Pneumonia Vaccine: No ROS Obtained: Yes Systems reviewed as appropriate & no additional complaints except as documented Physical Exam General General appearance: alert and in no apparent distress Head Head exam: atraumatic and normocephalic Neck Neck exam: Present full ROM Respiratory Respiratory exam: Present normal lung sounds bilaterally; Absent respiratory distress Cardiovascular Cardiovascular exam: Present regular rate and normal rhythm Abdominal Exam Abdominal exam: Present soft; Absent distention or tenderness Expanded Lower Extremity Exam Right: Comment: Tenderness to palpation to the right quadricep and quadriceps tendon. There is no patellar tenderness to palpation or joint line tenderness. There is no palpable effusion. Patient has full range of motion of the knee though reports increased pain in his quadricep with knee flexion. No erythema or warmth. Neurological Exam Neurological exam: Present alert and oriented X3 Medical Decision Making Medical Records Screening: Per USPSTF and CDC recommendations, given the prevalence of disease in our region, it is our hospital?s policy to screen for HIV and viral Hepatitis for all patients aged 18 and over and those with ongoing risk factors. Janes Inquiry Pt receiving controlled substance: No Vital Signs: 07/20/25 18:46 Temperature 98.2 F Temperature Source Oral Pulse Rate [Right Radial] 86 Respiratory Rate 18 Blood Pressure [Right Arm] 177/103 H Blood Pressure Mean [Right Arm] 127 Blood Pressure Source [Right Arm] Automatic Cuff Blood Pressure Position [Right Arm] Sitting 02 Sat by Pulse Oximetry 100 Oxygen Delivery Method Room Air Orders (Tests/Meds): ED MEDICATIONS Discontinued Medications Generic Name Dose Route Start Last Admin Trade Name Freq PRN Reason Stop Dose Admin Ibuprofen 600 mg 07/20/25 19:24 07/20/25 19:41 Ibuprofen 600 Mg Tablet PO 07/20/25 19:25 600 mg ONCE ONE Administration ORDERS Category Date Time Status Femur XR right 2 views [XR femur RT 2V] Stat Exams 07/20/25 19:11 Completed Hip XR right minimum 2 views [XR hip RT 2-3V w/pelvis] Exams 07/20/25 19:11 Completed Stat Knee XR right 3 views [XR knee RT 3V] Stat Exams 07/20/25 19:11 Completed Medical Decision Narrative: In summary, this is a 35-year-old male presenting to the emergency department today for evaluation of right leg pain. 3 days ago patient played in a softball tournament injuring his right quadriceps muscle. There was no known injury but pain began while playing in the outfield. Patient felt like he pulled a muscle but pain has increased over the last 2 days. It is now affecting his knee and hip as well. Patient took ibuprofen on Saturday but has not since. He has been using a heating pad to help with pain. On exam patient is well-appearing and in no acute distress. Sitting comfortably in hospital chair. There is tenderness to palpation to the right quadriceps and quadriceps tendon. There is no patellar tenderness to palpation or joint line tenderness. There is no palpable effusion. Patient has full range of motion of the knee though reports increased pain in his quadricep with knee flexion. No erythema or warmth. Differential diagnoses include but are not limited to sprain, strain, fracture, contusion, among others. Will obtain x-ray of the right knee, femur, and hip. I, along with Dr. Posada, independently interpreted the right knee, femur, and hip x-ray prior to radiologist interpretation. On our independent interpretation there is no evidence of acute fracture or bony abnormality. Awaiting radiologist interpretation at this time. Radiologist read in agreement. No acute fracture or bony abnormality. There is no significant joint effusion. Patient is appropriate for outpatient orthopedic follow-up if symptoms become persistent. He he will continue ibuprofen and Tylenol for symptomatic management. Low concern for emergent etiology at this time and patient is appropriate for outpatient follow-up. Patient feels comfortable with this treatment and discharge plan. Return precautions were discussed and understood and all questions have been answered. Critical Care Critical Care Time Critical Care Time: No
--- NOTE | 2025-07-20 19:11 | XR_ITS ---
PROCEDURE INFORMATION: Exam: XR Right Femur Exam date and time: 07/20/2025 7:17 PM Age: 35 years old Clinical indication: Injury or trauma; Other: Softball injury; Blunt trauma; Thigh or upper leg; Right; Additional info: Right hip and knee pain from playing softball 3 days ago TECHNIQUE: Imaging protocol: Radiologic exam of the right femur. Views: 2 views. COMPARISON: CT ABDOMEN PELVIS WO CON 11/25/2021 11:08 AM FINDINGS: Bones/joints: No acute bony abnormality of the right femur is identified. No abnormality of alignment at the right hip or knee is appreciated. The superior aspect of the right femoral head is not included. Soft tissues: Unremarkable. IMPRESSION: No acute findings.
--- NOTE | 2025-07-20 19:11 | XR_ITS ---
PROCEDURE INFORMATION: Exam: XR Right Knee Exam date and time: 07/20/2025 7:23 PM Age: 35 years old Clinical indication: Injury or trauma; Other: Softball injury; Blunt trauma; Knee; Right; Additional info: Right hip and knee pain from playing softball 3 days ago TECHNIQUE: Imaging protocol: Radiologic exam of the right knee. Views: 3 views. COMPARISON: CR XR FEMUR RT 2V 07/20/2025 7:17 PM FINDINGS: Bones/joints: Unremarkable. Soft tissues: Unremarkable. IMPRESSION: No acute findings.
--- NOTE | 2025-07-20 19:11 | XR_ITS ---
PROCEDURE INFORMATION: Exam: XR Right Hip Exam date and time: 07/20/2025 7:20 PM Age: 35 years old Clinical indication: Injury or trauma; Other: Softball injury; Blunt trauma (contusions or hematomas); Right; Hip; Additional info: Right hip and knee pain from play softball 3 days ago TECHNIQUE: Imaging protocol: Radiologic exam of the right hip. Views: 2 or 3 views hip with pelvis when performed. COMPARISON: CT ABDOMEN PELVIS WO CON 11/25/2021 11:08 AM FINDINGS: Bones/joints: The right femoral head is within the acetabulum. There is good preservation of the right hip joint. No acute fracture of the right hip is appreciated. There is a small ossification adjacent to the lesser trochanter that did appear to be present on the comparison CT abdomen and pelvis. The pubic rami appear intact. There is no diastasis of the pubic symphysis or sacroiliac joints appreciated. The left hip appears intact on the AP projection. Soft tissues: Unremarkable. IMPRESSION: No acute findings.
[2025-07-20] MEDS: IBUPROFEN 600 MG TABLET PO (19:41)
--- NOTE | 2025-07-20 20:10 | PC.NURSE ---
Pt awake alert and oriented Skin pink warm and dry Resp full and easy Speech clear and appropriate
--- NOTE | 2025-07-20 20:49 | PC.NURSE ---
Pt aware waiting on xray results
[2025-07-20 21:10] VITALS: BP 170/90; PULSE 82; RESP 16; TEMP 36.7; O2SAT 97
== END 2025-07-20 21:11 | disposition home or self-care (01) ==
PROVIDERS: Emergency Provider Student in an Organized Health Care Education/Training Program; PCP Internal Medicine Adolescent Medicine
DX: S76.111A Strain of right quadriceps muscle, fascia and tendon, initial encounter (principal); M25.561 Pain in right knee; I10 Essential (primary) hypertension; X50.0XXA Overexertion from strenuous movement or load, initial encounter
CPT/HCPCS: 73502; 73552; 73562; 99283

== ENCOUNTER 2025-08-06 14:00 | Outpatient (RCR) | payer BC, SELFPAY ==
--- NOTE | 2025-07-27 13:46 | HMH.PTOPEV ---
PT Evaluation Rehab PT Outpatient Evaluation Start: 07/27/25 12:51 Freq: Status: Active Protocol: Document 07/27/25 12:51 ROME (Rec: 07/27/25 13:46 ROME [id number]) E-signed By Antonio Cherry, PT Outpatient Therapy Subjective History Subjective History Pt is a 35 yom who is referred to [facility] outpatient PT with a referring diagnosis of a quadricep strain. Pt reports that he was playing in a slow pitch softball tournament on 07/18. Pt reports that he was chasing a fly ball when he felt a pull in his R anterior thigh. Pt reports that he ended up playing 4 games that day after the incident and the pain worsened throughout the day. The pt reports that he was in immense pain for the next few days before he decided to go to the ER. X- rays were negative. Pt then followed up with [facility] ortho who diagnosed the pt with a Right Quadricep Strain. Pt reports that his pain has improved somewhat but he still has a lot of difficulty with stairs and squatting down. Pt reports that he will still get some pain with walking but it has improved a lot. Pt reports that he has been wearing a compression sleeve which has helped some. 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 Chief Complaint Pain,Weakness Symptom Type Sharp,Stabbing,Burning Symptoms Relieved By Ice,OTC Meds Symptoms Aggravated Standing,Walking,Lifting By Prior Functional None Limitations Current Functional Lifting,Standing,Squatting,Recreation Activity,Walking, Limitations Stairs Symptom Description Intermittent,Activity Dependent Level of pain today 4 (0-10) Pain scale - at its 0 best (0-10) Pain scale - at its 10 worst (0-10) Hip/Knee Eval Gait Observation General Gait Pattern Antalgic Gait,Decrease Weight Bear (R),Decrease Stride Observation Lngth (L) Palpation Tenderness right Knee Palpation Tenderness Finding Knee Palpation TTP 2/4 to muscle belly of vastus lateralis Overall Comment MMT Hip Flexion Strength 5 Normal Grade Hip Abduction 5 Normal Strength Grade Hip Adduction 5 Normal Strength Grade Hip Extension 5 Normal Strength Grade Gluteus Christopher 5 Normal Strength Grade Hip External 5 Normal Rotation Strength Grade Hip Internal 5 Normal Rotation Strength Grade Knee Extension 3 Fair Strength Grade Knee Flexion 5 Normal Strength Grade ROM Knee ROM Reason Not Within Functional Limits Measured Lower Extremity Functional Index Activities Today, do you or would you have any difficulty at all with: a.Any of your usual Moderate difficulty work, housework or school activities b. Your usual Quite a bit of difficulty hobbies, recreational or sporting activities c. Getting into or Moderate difficulty out of the bath d. Walking between A little bit of difficulty rooms e. Putting on your Moderate difficulty shoes or socks f. Squatting Extreme difficulty or unable to perform activity g. Lifting an object No difficulty , like a bag of groceries from the floor h. Performing light Moderate difficulty activities around your home i. Performing heavy Moderate difficulty activities around your home j. Getting into or Quite a bit of difficulty out of a car k. Walking 2 blocks Quite a bit of difficulty l. Walking a mile Extreme difficulty or unable to perform activity m. Going up or down Extreme difficulty or unable to perform activity 10 stairs (about 1 flight of stairs) n. Standing for 1 Quite a bit of difficulty hour o. Sitting for 1 Quite a bit of difficulty hour p. Running on even Quite a bit of difficulty ground q. Running on uneven Extreme difficulty or unable to perform activity ground r. Making sharp Extreme difficulty or unable to perform activity turns while running fast s. Hopping Extreme difficulty or unable to perform activity t. Rolling over in A little bit of difficulty bed LEFI Score Lower Extremity 26 Functional Index Score Outpatient Therapy Assessment Impairments Problems/ Palpation Tenderness,Impaired Range of Motion,Impaired Impairmments Strength,Impaired Gait Pattern,Impaired Walking, Impaired Standing,Impaired Lifting,Impaired Squatting, Impaired Recreational Activities,Impaired Running, Impaired Work Activities,Subjective C/O Pain Prognosis Rehab Potential Good Comment w HEP compliance Clinical Impression Consistent with Yes Diagnosis Consistent with Grade 2 R Quad Strain Additional details: Pt demonstrates pain with active knee extension, pain and weakness with resisted knee extension and pain with passive knee flexion. These signs and symptoms are consistent with a grade 2 quad strain. Skilled PT is indicated for this pt. PT Patient Goals PT Patient Goals PT Short Term In 2 weeks: Patient Goals 1. Pt will report a 48 hour average of 3-4/10 pain in order to demonstrate a reduction in symptoms and an improved QOL. 2. Pt will demonstrate full knee ROM without pain in order to demonstrate improved functional movement patterns and improved tissue healing. 3. Pt will demonstrate a normal gait pattern with symmetrical weight bearing in order to demonstrate improved functional movement patterns. 4. Pt will improve LEFS score to 45/80 in order to demonstrate overall improvement. 5. Pt will improve his R knee extension strength to 4/5 in order to demonstrate improve tissue healing of the R quadricep muscle group. PT Wellness Nurse Patient In 4 weeks: Goals 1. Pt will report a 48 hour average of 1-2/10 pain in order to demonstrate a reduction in symptoms and an improved QOL. 2. Pt will improve his R knee extension strength to 4/5 in order to demonstrate improve tissue healing of the R quadricep 3. Pt will improve LEFS score to 70/80 in order to demonstrate overall improvement. 4. Pt will return to running with no complaints of R thigh pain in order to demonstrate a readiness for return to sport. 5. Pt will be able to perform 10 bodyweight squats with symmetrical weightbearing and no increase in pain in order to demonstrate improved tissue healing and readiness for return to sport. 6. Pt will return to softball without increasing symptoms. Outpatient Therapy Plan of Care Treatment Plan May Include Therapeutic Exercise Yes Including Home Exercise Program Manual Therapy Yes Techniques Neuromuscular Re- Yes education Therapeutic Yes Activities to Return to Previous Functional/Work Level Gait Training Yes ADL/Self Care Yes Education Thermal Modalities Yes Electrical Yes Stimulation Ultrasound/ Yes Phonophoresis Iontophoresis Yes Orthotics/Bracing/ Yes Splinting Vasopneumatic Yes Compression Pump Massage Yes Manual Lymphatic Yes Drainage Eval/Re-Eval Yes Frequency Times per week 2 Duration Number of Weeks 4 Addendums This patient is a No candidate for social or vocational rehab ? Patient/Guardian Yes verbally acknowledges understanding of treatment program and consents to further treatment? Patient/Guardian Yes verbally acknowledges understanding of diagnosis, prognosis and goals for treatment? Eval Complexity PT Charges 92368 - Low Complexity Shoulder/Elbow Eval Shoulder Objective Measurements Elbow Objective Measurements PHYSICIAN CERTIFICATION: I certify the specified therapy services for Brent Juan are required, authorized, and reviewed every 30 days.
== END 2025-08-06 23:59 | disposition home or self-care (01) ==
LOC: PT 14:00
PROVIDERS: PCP Internal Medicine Adolescent Medicine; Visit Provider Physician Assistant
DX: S76.111A Strain of right quadriceps muscle, fascia and tendon, initial encounter (principal)
CPT/HCPCS: 97014; 97110; 97140; 97161; 97530; G0283